=== PATIENT | male | born 1945 | race Caucasian/White ===

== ENCOUNTER 2017-01-23 07:28 | Observation (INO) | payer MEDICARE, BC ==
[2017-01-23] MEDS ORDERED: NS 0.9% 1000 ML* 1,000 ML IV ONE (07:41)
[2017-01-23] MEDS ORDERED: Aspirin Low Dose CHEW TAB* 81 MG PO ONE (07:41)
[2017-01-23 07:53] LABS: Hematocrit 43 % (42-52); Hemoglobin 14.9 g/dl (14.0-18.0); Mean Corpuscular HGB Conc 34 g/dl (31-36); Mean Corpuscular Hemoglobin 30 pg (27-31); Mean Corpuscular Volume 89 fL (80-94); Mean Platelet Volume 8 um3 (7.4-10.4); Red Blood Count 4.89 10^6/ul (4.0-5.4); Red Cell Distribution Width 14 % (10.5-15); White Blood Count 10.5 10^3/ul (3.5-10.8)
[2017-01-23] MEDS ORDERED: LORazepam INJ* 2 MG/ML 1 ML VIAL IV PUSH ONE (08:03)
[2017-01-23 08:09] LABS: Albumin 4.4 g/dL (3.2-5.2); BUN/Creatinine Ratio 15.7 (8-20); EGFR African American 71.5 (>60); EGFR Non-African American 55.6 (>60); Globulin 2.8 g/dL (2-4); Magnesium 1.9 mg/dL (1.9-2.7); Potassium 4.1 mmol/L (3.5-5.0); Total Bilirubin 0.9 mg/dL (0.2-1.0); Total Protein 7.2 g/dL (6.4-8.9)
--- NOTE | 2017-01-23 08:28 | RAD ---
INDICATION: Chest pain. COMPARISON: There are no prior studies available for comparison. TECHNIQUE: A portable view of the chest was obtained. FINDINGS: Cardiac and mediastinal contours appear to be within normal limits. There is a faint nodular density which projects over the right upper lobe which may be artifactual although a true pulmonary nodule cannot be excluded. The lungs are otherwise clear. No pleural effusion is seen. The results of this examination were discussed with the referring clinician. IMPRESSION: THERE IS A FAINT NODULAR DENSITY WHICH PROJECTS OVER THE RIGHT UPPER LOBE. RECOMMEND PA AND LATERAL CHEST X-RAYS FOR FURTHER EVALUATION.
[2017-01-23 08:32] LABS: TSH (Thyroid Stimulating Horm) 1.5 mcIU/mL (0.34-5.60)
[2017-01-23] MEDS ORDERED: Iodixanol* (CONTRAST) 320 MG/ML 100 ML SDV IV ONE (09:07)
[2017-01-23] MEDS ORDERED: NS 0.9% 1000 ML* 1,000 ML IV SCH (09:30)
--- NOTE | 2017-01-23 09:56 | RAD ---
INDICATION: Chest pain. Short of breath. Evaluate for pulmonary embolus. COMPARISON: January 23, 2017 TECHNIQUE: Axial source images were obtained from the thoracic inlet to the hemidiaphragms following administration of 77 mL Visipaque [address] angiographic technique was utilized. Coronal and sagittal reconstructed images were acquired. CHEST FINDINGS: Neck/thyroid: The visualized neck to include the thyroid appear normal. Chest wall: There are no acute abnormalities of the bony thorax or chest wall. There is no supraclavicular, infraclavicular, or axillary lymphadenopathy. Lungs : There is a spiculated 2.0 x 2.6 cm right upper lobe mass with a small amount of adjacent infiltrate or atelectasis. There are no other masses. There is also mild gravity dependent atelectasis in the lung bases. Evaluation of the lung bases is mildly limited due to breathing motion artifact. The pulmonary interstitium appears normal. There are no endobronchial lesions. Cardiomediastinal structures: There is no CT evidence of acute pulmonary embolic disease. The heart is normal in size. There is no pericardial effusion. There is no evidence of aortic aneurysm or dissection. There is no mediastinal or hilar adenopathy. The esophagus is dilated and there is no air-fluid level. There is circumferential thickening of the distal esophagus raising the possibility of esophageal carcinoma. Pleura : There are no pleural-based masses or effusions. Other: None. IMPRESSION: 1. 2.6 cm right upper lobe mass may or present a primary bronchogenic carcinoma or may be metastatic. 2. Circumferential thickening of the distal esophagus suggests the possibility of esophageal carcinoma. Upper endoscopy is recommended.
[2017-01-23 11:19] LABS: T4 9.38 mcg/mL (6.09-12.23)
[2017-01-23] MEDS: Heparin VIAL(*) 5000 UNITS/ML VIAL (FIVE THOUSAND) SUBCUT SCH ×2 (15:13→20:43)
--- NOTE | 2017-01-23 16:52 | RAD ---
Edited for charges. Indication: Chest pain. Myocardial perfusion scan was performed utilizing 1 day protocol. Rest myocardial perfusion was performed after intravenous injection of 10.6 mCi of technetium 99m tetrofosmin. Exercise stress study was performed and the maximum heart rate achieved was 101% of the maximum predicted value. 25.29 mCi of technetium 99m tetrofosmin was injected for the stress portion of the study. There is homogeneous distribution of the radiotracer throughout the left ventricle. There is no evidence of any fixed or reversible perfusion defects identified. The ejection fraction at stress is 79%. Evaluation of wall motion demonstrates no focal wall motion abnormality. IMPRESSION: No evidence of fixed or reversible perfusion defect. Normal ejection fraction. ASSESSMENT: Low risk Based on imaging criteria from ACC/AHA 2002 Guideline Update for the Management of Patients With Chronic Stable Angina Table 23. Noninvasive Risk Stratification. MTDD
[2017-01-23] MEDS ORDERED: Zolpidem TAB* 5 MG PO PRN (18:20)
--- NOTE | 2017-01-23 18:49 | PN ---
Hospitalist Progress Note CT scan reviewed with patient and , explained my concern about lung lesion and esophageal thickening and have called GI for evaluation for possible EGD. Will make NPO after midnight. Stress test negative.
[2017-01-23] MEDS ORDERED: Atorvastatin* 40 MG TAB PO SCH (21:00)
--- NOTE | 2017-01-23 21:11 | ED ---
Remi Morales Billy, scribed for Ildefonso Oquendo MD on 01/23/17 at 0741 . HPI Chest Pain - HPI Summary HPI Summary: Patient is a 71 year-old male coming to [facility] for evaluation of intermittent chest pain since 0100 early this morning. The pain is located in the upper sternal region of his chest bilaterally. Positive shortness of breath. He has had three episodes of nausea and vomiting since onset, and he has been lightheaded and diaphoretic. He also has intermittent bilateral numbness and tingling in his hands. He states that he felt dizzy yesterday afternoon, and he also states that he drove to and from [place]. The patient was given one dose of NTG by EMS. Denies history of AZ. - History of Current Complaint Chief Complaint: EDChestPainROMI Time Seen by Provider: 01/23/17 07:35 Hx Obtained From: Patient Onset/Duration: Started Hours Ago Time of Onset: 01:00 Timing: Intermittent Initial Severity: Moderate Current Severity: Moderate Pain Intensity: 3 Pain Scale Used: 0-10 Numeric Chest Pain Location: Upper Sternal Aggravating Factor(s): Nothing Alleviating Factor(s): Nothing Associated Signs and Symptoms: Positive: Chest Pain, Numbness, Tingling, Shortness of Breath, Lightheadedness, Diaphoresis, Nausea, Vomiting - Allergy/Home Medications Allergies/Adverse Reactions: Allergies Allergy/AdvReac Type Severity Reaction Status Date / Time No Known Allergies Allergy Verified 01/23/17 08:40 Home Medications: Home Medications Budesonide [Entocort EC] 9 mg PO DAILY 01/23/17 [History Confirmed 01/23/17] Dutasteride [Avodart] 0.5 mg PO DAILY 01/23/17 [History Confirmed 01/23/17] Eszopiclone (NF) [Lunesta (NF)] 3 mg PO BEDTIME 01/23/17 [History Confirmed ] Lipitor 40 MG* 40 mg PO BEDTIME 01/23/17 [History Confirmed 01/23/17] Lisinopril [Zestril 20 MG-] 20 mg PO DAILY 01/23/17 [History Confirmed 01/23/17] Tamsulosin CAP* [Flomax CAP*] 0.4 mg PO DAILY 01/23/17 [History Confirmed ] PMH/Surg Hx/FS Hx/Imm Hx Cardiovascular History: Reports: Hx Hypercholesterolemia, Hx Hypertension Sensory History: Denies: Hx Deafness Opthamlomology History: Denies: Hx Legally Blind Infectious Disease History: No Infectious Disease History: Denies: Traveled Outside the [place] in Last 30 Days - Family History Known Family History: Positive: Cardiac Disease - Father at age 56 during CABG operation. - Social History Alcohol Use: Occasionally Substance Use Type: Reports: None Smoking Status (MU): Former Smoker Review of Systems Positive: Chest Pain Positive: Shortness Of Breath Positive: Vomiting, Nausea Neurological: Other - lightheaded Positive: Paresthesia, Numbness All Other Systems Reviewed And Are Negative: Yes Physical Exam - Summary Physical Exam Summary: VITAL SIGNS: Reviewed. GENERAL: Patient is a well developed and nourished male who is lying comfortable in the stretcher. Patient is not in any acute respiratory distress. HEAD AND FACE: No signs of trauma. No ecchymosis, hematomas or skull depressions. No sinus tenderness. EYES: PERRLA, EOMI x 2, No injected conjunctiva, no nystagmus. EARS: Hearing grossly intact. Ear canals and tympanic membranes are within normal limits. MOUTH: Oropharynx within normal limits. NECK: Supple, trachea is midline, no adenopathy, no JVD, no carotid bruit, no c- spine tenderness, neck with full ROM. CHEST: Symmetric, no tenderness at palpation LUNGS: Clear to auscultation bilaterally. No wheezing or crackles. CVS: Regular rate and rhythm, S1 and S2 present, no murmurs or gallops appreciated. ABDOMEN: Soft, non-tender. No signs of distention. No rebound no guarding, and no masses palpated. Bowel sounds are normal. EXTREMITIES: FROM in all major joints, no edema, no cyanosis or clubbing. NEURO: Alert and oriented x 3. No acute neurological deficits. Speech is normal and follows commands. SKIN: Dry and warm Triage Information Reviewed: Yes Vital Signs On Initial Exam: Initial Vitals Temp Pulse Resp BP Pulse Ox 97.0 F 96 16 86/60 98 01/23/17 07:31 01/23/17 07:31 01/23/17 07:31 01/23/17 07:31 01/23/17 07:31 Vital Signs Reviewed: Yes Diagnostics - Vital Signs Vital Signs Temp Pulse Resp BP Pulse Ox 01/23/17 07:31 97.0 F 96 16 86/60 98 - Laboratory Lab Results: Lab Results 01/23/17 01/23/17 Range/Units 07:38 07:38 WBC 10.5 (3.5-10.8) 10^3/ul RBC 4.89 (4.0-5.4) 10^6/ul Hgb 14.9 (14.0-18.0) g/dl Hct 43 (42-52) % MCV 89 (80-94) fL MCH 30 (27-31) pg MCHC 34 (31-36) g/dl RDW 14 (10.5-15) % Plt Count 188 (150-450) 10^3/ul MPV 8 (7.4-10.4) um3 Neut % (Auto) 60.9 (38-83) % Lymph % (Auto) 29.8 (25-47) % [place] % (Auto) 7.8 (1-9) % Eos % (Auto) 0.8 (0-6) % Baso % (Auto) 0.7 (0-2) % Absolute Neuts (auto) 6.4 (1.5-7.7) 10^3/ul Absolute Lymphs (auto) 3.1 (1.0-4.8) 10^3/ul Absolute Monos (auto) 0.8 (0-0.8) 10^3/ul Absolute Eos (auto) 0.1 (0-0.6) 10^3/ul Absolute Basos (auto) 0.1 (0-0.2) 10^3/ul Absolute Nucleated RBC 0.02 10^3/ul Nucleated RBC % 0.2 Sodium 138 (133-145) mmol/L Potassium 4.1 (3.5-5.0) mmol/L Chloride 104 (101-111) mmol/L Carbon Dioxide 22 (22-32) mmol/L Anion Gap 12 H (2-11) mmol/L BUN 20 (6-24) mg/dL Creatinine 1.27 H (0.67-1.17) mg/dL Est GFR ( Amer) 71.5 (>60) Est GFR (Non-Af Amer) 55.6 (>60) BUN/Creatinine Ratio 15.7 (8-20) Glucose 122 H (70-100) mg/dL Calcium 10.0 (8.6-10.3) mg/dL Magnesium 1.9 (1.9-2.7) mg/dL Total Bilirubin 0.90 (0.2-1.0) mg/dL AST 18 (13-39) U/L ALT 17 (7-52) U/L Alkaline Phosphatase 65 (34-104) U/L Total Creatine Kinase 54 (10-223) U/L CK-MB (CK-2) Pending Myoglobin Pending Troponin I Pending Total Protein 7.2 (6.4-8.9) g/dL Albumin 4.4 (3.2-5.2) g/dL Globulin 2.8 (2-4) g/dL Albumin/Globulin Ratio 1.6 (1-3) TSH Pending Thyroxine (T4) Pending Result Diagrams: 01/23/17 07:38 01/23/17 07:38 Lab Statement: Any lab studies that have been ordered have been reviewed, and results considered in the medical decision making process. - Radiology CXR Radiology Interpretation Completed By: Radiologist - THERE IS A FAINT NODULAR DENSITY WHICH PROJECTS OVER THE RIGHT UPPER LOBE. RECOMMEND PA AND LATERAL CHEST X-RAYS FOR FURTHER EVALUATION. - CT CTA chest CT Interpretation Completed By: Radiologist - 1. 2.6 cm right upper lobe mass may or present a primary bronchogenic carcinoma or may be metastatic. 2. Circumferential thickening of the distal esophagus suggests the possibility of esophageal carcinoma. Upper endoscopy is recommended. - EKG 0732 EKG Interpretation: NSR 87 bpm, ST depressions in V3-V6, no STEMI Chest Pain Course/Dx - Course Assessment/Plan: Patient is a 71 year-old male coming to [facility] for evaluation of intermittent chest pain since 0100 early this morning. The pain is located in the upper sternal region of his chest bilaterally. Positive shortness of breath. He has had three episodes of nausea and vomiting since onset, and he has been lightheaded and diaphoretic. He also has intermittent bilateral numbness and tingling in his hands. He states that he felt dizzy yesterday afternoon, and he also states that he drove to and from [place]. The patient was given one dose of NTG by EMS. Denies history of AZ. Test results show bloodwork WNL except for D-dimer shows 455, creatinine of 1.27, and lactic acid of 2.5. Troponin #1 is 0.01, and troponin #2 is 0.01. CXR shows there is a faint nodular density which projects over the right upper lobe. Since there was a possible mass from the CXR, it was recommended to order CTA chest. The CTA chest shows: 1. 2.6 cm right upper lobe mass may or present a primary bronchogenic carcinoma or may be metastatic. 2. Circumferential thickening of the distal esophagus suggests the possibility of esophageal carcinoma. Since he had chest pain and these new findings from the CTA chest, possibly bronchogenic and esophageal carcinoma, I discussed my physical exam findings with Dr. Dunbar who accepted the patient for admission. He is hemodynamically stable, A&Ox3. - Chest Pain Differential Diagnosis/HQI/PQRI: Acute AZ, ACS, Angina, CHF, Chest Wall, GI Disease, Lower Respiratory Infection - Diagnoses Provider Diagnoses: chest pain r/o ACS, pulmonary mass r/o cancer, esophageal mass r/o esophageal carcinoma - Provider Notifications Discussed Care Of Patient With: Dr. Dunbar (hospitalist) at 0814: accepts admission. Dr. Ramos (radiologist) at 0825: CXR findings reviewed, recommends follow-up imaging. Discharge - Discharge Plan Condition: Stable Disposition: ADMITTED TO [facility] The documentation as recorded by the Remi swain Billy accurately reflects the service I personally performed and the decisions made by me, Ildefonso Oquendo MD.
--- NOTE | 2017-01-23 23:36 | CONS ---
Gastroenterology Consult DATE: 01/23/17 CONSULTING PHYSICIAN: Tim Dunbar REASON FOR CONSULTATION: Nausea and vomiting, illness beginning 1 a.m. the day of admission and then in ER ten hrs later CTA of the chest showing thickening of the esophagus and a possible RUL lung tumor. HISTORY: This 71-year-old man who generally does not have any gastrointestinal problems and is not on any special diet had been feeling nonspecifically unwell all day, , 01/22/17. He had a little bit of a headache. He drove to [place] with his and just felt sort of rotten, so let her drive home. They went to dinner and although he was anorectic, he had a little portion as tomorrow is their 50th anniversary. He went to bed, but did not really sleep as he was restless. He started vomiting around 1 a.m. and then had some chest pain. He thought the emesis contained bile. He vomited again at 4 and at 4:45 and then 7 a.m. His called an ambulance at that point. In the emergency room, there was no specific reason for the chest pain determined and he had a stress test today and there is a nuclear component. Preliminary exercise portion is okay. The ejection fraction was 79% on the nuclear portion and there was no wall motion abnormality. Tonight he was then able to eat some macaroni and that has settled fine. He does not feel any pain. PAST MEDICAL HISTORY: 1. Total hip replacement [address] Flowers - on the left. 2. Bilateral inguinal hernia repairs. 3. Microscopic Colitis - see ROS 4. Sinus surgery x 2 SOCIAL HISTORY: He is , retired from [employer] and spent November and December in [place] and is intensely tanned. He is a nonsmoker. He lives in [facility] in [place]. REVIEW OF SYSTEMS: No history of seizures, CVA, syncope, prior chest pain, and prior upper endoscopy. He has had 2 colonoscopies at [facility] that were negative. There is no recent falls. In January [address] Fink and had +CURT 1: 80 homogeneous. He denies taking Advil or Aleve. The next day on review he said he vomits every morning (but not at other times) attributing it to his sinuses. Addendum: later made reference to his "microbial colitis"; he had first said his colonoscopies were routine and with no findings - apparently he had chronic diarrhea and has been on budesonide since fall 2015 and it apparently helps PHYSICAL EXAM: General: He is an intensely tanned older man, in no distress. He is anicteric. Mucous membranes are normal. He has no adenopathy. Lungs: Clear. Heart: Sounds are regular. Abdomen: Symmetric with normal bowel sounds , soft, and nontender. Rectal: Deferred. Extremities: Show no edema. Neurologic: Nonfocal as he is awake, alert, and an external historian and ambulates freely. DIAGNOSTIC STUDIES/LAB DATA: Today, hemoglobin 14.9, hematocrit 43, MCV 89, and platelets 188. LFTs are normal. Creatinine 1.27 and BUN 20. AST/ALT 18/ 17. CT review - right upper lobe 2.6 cm lesion and a nondilated esophagus. IMPRESSION: This 71-year-old man has had acute GI symptoms that followed a day of malaise with no fever - it seems to have passed. In the ER the focus was on chest pain so the CT was of the chest. This and an ETT have not found any potential cause for the pain. He has some vague GERD like symptoms and sometimes that could lead to a Swanson's with a mass eventually. That would not usually lead to acute N_V or pain. Overall how all this fits together is is unclear - if EGD is negative a biliary source, will have to be considered. That is clearly separate from the issue raised on the CT scan in the right upper lobe and conceivably the distal esophagus. Upper endoscopy will be planned tomorrow. [id number]/[facility] #: [id number] [facility]
[2017-01-24] MEDS: Heparin VIAL(*) 5000 UNITS/ML VIAL (FIVE THOUSAND) SUBCUT SCH ×2 (05:58→12:19)
[2017-01-24 06:34] LABS: BUN/Creatinine Ratio 15.2 (8-20); Calcium 8.6 mg/dL (8.6-10.3); EGFR African American 95.3 (>60); EGFR Non-African American 74.1 (>60); Potassium 4.1 mmol/L (3.5-5.0)
[2017-01-24 06:41] LABS: Urine Bacteria Absent (Absent); Urine Bilirubin Negative (Negative); Urine Glucose Negative (Negative); Urine Nitrite Negative (Negative)
[2017-01-24 07:54] VITALS: BP 124/44
[2017-01-24] MEDS ORDERED: Finasteride TAB* 5 MG PO SCH (09:00)
[2017-01-24] MEDS ORDERED: Tamsulosin CAP* 0.4 MG PO SCH (09:00)
[2017-01-24] MEDS ORDERED: Budesonide CAP(NF) 3 MG PO SCH (09:00)
[2017-01-24] MEDS ORDERED: Aspirin EC Low Dose* 81 MG TAB.EC PO SCH (09:00)
[2017-01-24] MEDS ORDERED: Lisinopril TAB* 10 MG PO SCH (09:00)
[2017-01-24] MEDS ORDERED: Meperidine SYRINGE* 50 MG/ML ONE (09:30)
[2017-01-24] MEDS ORDERED: Midazolam* 1 MG/ML 10 ML VIAL (10 MG) ONE (09:30)
--- NOTE | 2017-01-24 15:17 | PN ---
Hospitalist Progress Note . HOSPITALIST DISCHARGE NOTE: See dc instructions and summary by me. Patient stable for dc dc instructions reviewed with the patient at the bedside. DC patient home today.
--- NOTE | 2017-01-25 01:48 | PRO ---
DATE: 01/24/17 - ROOM #[id number] REFERRING PHYSICIANS: Rodri Matson MD; Tim Dunbar MD* PROCEDURE: Upper gastrointestinal endoscopy. 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 He gave supplementary history of vomiting every morning for over 10 years, which he attributes to "sinuses." He downplays any burning or acid indigestion. He has a good appetite and no dysphagia. Informed consent was obtained. ENDOSCOPIST: Dr. Solares. MEDICATIONS: Midazolam 7, meperidine 50. FINDINGS: He is a tall tanned older man in no distress. EGD: Larynx - symmetric. Limited views with no obvious abnormality. Esophagus - easily entered and the mucosa is normal in the upper and mid esophagus. During certain phases of contraction, there was a ringlet impression to the mid esophagus and during the withdrawal phase of the procedure , two biopsies taken there, although most of the views showed a smooth, normal mid esophagus. Beginning at about 33 cm, there were erosions that increased rapidly and it became severe 4 quadrant from about 35 to 40. The edema was intense and appeared to be chronic as well as an acute injury on top. The EG junction at 40 was a little bit loose and there was a small hiatal hernia. There was no mass and no stricture per se. Stomach - generally normal mucosa and the cardia, fundus, body and antrum. A CLOtest was taken. Duodenum - the pylorus was normal. The bulb had a speckled white exudate appearing quite typical to chronic situation. The second through fourth portions of the duodenum were normal. During withdrawal, biopsies were taken from the severe distal esophagitis. IMPRESSION: 1. Small hiatal hernia. 2. Severe erosive gastroesophageal reflux disease, lower one-third of the esophagus. 3. Duodenitis - Helicobacter assessment pending and interview of his to determine possible NSAID use will be done. He denied NSAID use, but seems to be a minimizing historian. 4. Lung lesion - no evidence of a primary site in the visualized areas, which is good for him. [id number]/[facility] #: [id number] [facility]
--- NOTE | 2017-01-25 09:25 | DS ---
CC: Dr. Matson; Dr. Solares; Dr. Tejeda ([facility]) DISCHARGE SUMMARY: DATE OF ADMISSION: 01/23/17 DATE OF DISCHARGE: 01/24/17 STATUS DURING HOSPITALIZATION: Observation. PRIMARY CARE PROVIDER: Dr. Matson. PRINCIPAL DISCHARGE DIAGNOSES: 1. Erosive esophagitis after EGD by Dr. Braulio Solares. 2. Chest pain secondary to above, but initially thought secondary to perhaps coronary disease and status post nuclear stress test - rated low risk by ACC/ AHA criteria following a rule out by cardiac enzymes. 3. Left lung lesion seen on Chest CT, described below, with features consistent with possible malignancy. SECONDARY DIAGNOSES: 1. History of microscopic colitis - on steroids. 2. Bilateral inguinal hernia repairs. 3. Total hip replacement. 4. History of sinus surgeries. 5. 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 DISCHARGE MEDICATION REGIMEN: New: 1. Omeprazole 40 mg by mouth twice daily for one month and then reassess 2. Tamsulosin 0.4 mg by mouth daily. 3. Lisinopril 20 mg by mouth daily. 4. Lipitor 40 mg by mouth at bedtime. 5. Lunesta 3 mg by mouth bedtime. 6. Avodart 0.5 mg by mouth daily. 7. Budesonide 9 mg by mouth daily. HISTORY OF PRESENT ILLNESS AND HOSPITAL COURSE: Mr. Hidalgo is a pleasant 71- year-old gentleman who came to the emergency room with concern for chest pain after he woke up in the morning with vomiting and had subsequent chest pain. He thought the emesis contained bile. The patient had another episode of vomiting at 4:45 and then 7 a.m. on the morning of January 23 and his called an ambulance. The patient came to the emergency room and the initial concern was for coronary disease and the patient was placed on observation status with 2 sets of normal troponins warosa, and then he underwent a nuclear stress test, which was interpreted as low risk. The patient also had a CT scan of his chest and thorax and the results were concerning including a 2.6 cm right upper lobe mass that might represent a primary bronchogenic carcinoma or be metastatic and secondly, circumferential thickening of the distal esophagus suggesting the possibility of esophageal carcinoma and so, an upper endoscopy was recommended. They then pursued a GI consultation by Dr. Braulio Solares, who agreed to bring the patient for an EGD on the morning of 01/24/17. Please see his procedure note for more details, but in essence Dr. Solares found erosive esophagitis and not changes consistent with carcinoma or other malignant entity. The patient was placed on PPI therapy and is being discharged on such. The lung lesion then represents an issue to follow up and courtesy call will be placed to Dr. Matson regarding this. I spent some time speaking to the patient about the possibility of endobronchial biopsy versus, perhaps, an interventional radiology approach -- all depending on the anatomy and location of the lung mass. The patient is being discharged home in stable condition. He has not experienced any pain at this point. He will start the PPI therapy and will also follow up with his outpatient food safety director, Dr. Tejeda later this week. I gave a copy of the chest CT results to the patient's at the bedside, again they will work out the subsequent plans with Dr. Matson, who I will also reach out too. TIME SPENT: Total time taken to discharge Mr. Hidalgo was 45 minutes, greater than half the time spent going over the discharge instructions and the results from his CT test and the EGD and explaining the rationale for PPI therapy and so on. CONDITION ON DISCHARGE: Stable. [id number]/[facility] #: [id number] [facility]
== END 2017-01-24 13:45 | disposition home or self-care (01) ==
LOC: ED 07:28 → MEDTELE 08:16
PROVIDERS: ADMIT Hospitalist; ATTEND Internal Medicine
PROC: 0DB58ZX Excision of Esophagus, Via Natural or Artificial Opening Endoscopic, Diagnostic (ICD-10-PCS; principal; 2017-01-23)
DX: K22.10 Ulcer of esophagus without bleeding (principal); K21.0 Gastro-esophageal reflux disease with esophagitis; K44.9 Diaphragmatic hernia without obstruction or gangrene; K29.80 Duodenitis without bleeding; R07.9 Chest pain, unspecified; R11.2 Nausea with vomiting, unspecified; R91.1 Solitary pulmonary nodule; I10 Essential (primary) hypertension; E78.00 Pure hypercholesterolemia, unspecified; Z79.899 Other long term (current) drug therapy; Z87.891 Personal history of nicotine dependence; Z96.642 Presence of left artificial hip joint; R06.02 Shortness of breath
CPT/HCPCS: 36415; 71010; 71275; 78452; 80048; 80053; 81003; 81015; 82550; 82553; 83605; 83735; 83874; 83880; 84436; 84443; 84484; 85025; 85379; 85730; 87077; 88305; 88312; 93005; 93017; 96361; 96372; 96374; 99283; A9270-GY; A9502; G0378; J1644; J2060; J2250; Q9967

== ENCOUNTER 2017-03-05 12:38 | Day surgery (SDC) | payer MEDICARE, BC ==
[~2017-03-05 12:38] MED LIST: Buffered Lidocaine 0.9% SYRIN* 5 ML/SYR SYRINGE INTRADERM ONE; Famotidine IV* 10 MG/ML 2 ML (20 mg) IV ONE; Levalbuterol 0.63MG/3ML NEB INH ONE; Metoclopramide TAB* 10 MG PO ONE
[2017-03-05] MEDS ORDERED: Famotidine IV* 10 MG/ML 2 ML (20 mg) ONE (12:50)
[2017-03-05] MEDS ORDERED: Metoclopramide TAB* 10 MG ONE (12:50)
[2017-03-05] MEDS ORDERED: Levalbuterol 1.25MG/0.5ML NEB ONE (12:51)
[2017-03-05] MEDS ORDERED: Buffered Lidocaine 0.9% SYRIN* 5 ML/SYR SYRINGE ONE (12:51)
[2017-03-05] MEDS ORDERED: Dexamethasone IV* 4 MG/ML 1 ML (4 MG) ONE (13:22)
[2017-03-05] MEDS ORDERED: Cisatracurium* 2 MG/ML MDV 5 ML ONE (13:22)
[2017-03-05] MEDS ORDERED: Lidocaine 2% PF * 5 ML VIAL ONE (13:22)
[2017-03-05] MEDS ORDERED: fentaNYL* 50 MCG/ML 2 ML VIAL (100 MCG VIAL) ONE (13:22)
[2017-03-05] MEDS ORDERED: Propofol* 10 MG/ML 20 ML BTL IV PUSH ONE (13:22)
[2017-03-05] MEDS ORDERED: Ondansetron INJ* 2 MG/ML VIAL ONE (13:22)
[2017-03-05] MEDS ORDERED: KETAMINE HCL* 50 MG/ML 10 ML VIAL ONE (13:23)
[2017-03-05] MEDS ORDERED: Midazolam* 1 MG/ML 5 ML VIAL (5 MG) ONE (13:23)
[2017-03-05] MEDS ORDERED: fentaNYL* 50 MCG/ML 2 ML VIAL (100 MCG VIAL) IV PRN (15:43)
[2017-03-05] MEDS ORDERED: Ondansetron INJ* 2 MG/ML VIAL IV PRN (15:43)
[2017-03-05] MEDS ORDERED: oxyCODONE/Acetamin 5/325 MG* TAB PO PRN (15:43)
[2017-03-05 16:12] VITALS: BP 116/79
--- NOTE | 2017-03-06 12:33 | PRO ---
BRONCHOSCOPY REPORT: DATE OF PROCEDURE: 03/05/17 PROCEDURE PERFORMED: Bronchoscopy with endobronchial ultrasound-guided mediastinal node biopsy for lung cancer staging. ANESTHESIA: General anesthesia. ANESTHESIOLOGIST: Dr. Rodríguez. PRE-PROCEDURAL DIAGNOSIS: Recently diagnosed adenocarcinoma of the right lung, status post CT-guided biopsy at [facility]. PROCEDURE IN DETAIL: Informed consent was obtained from the patient prior to the procedure after all the risks and benefits were thoroughly explained. The patient was recently diagnosed with adenocarcinoma of right lung, status post CT -guided biopsy performed at [facility] in [place]. The patient was scheduled for EBUS bronchoscopy for lung cancer staging. Pre-procedural chest x -rays and CT scan were reviewed. Appropriate time-out was agreed on by attending staff prior to the procedure. Patient was positioned supine on the operating room table. General anesthesia was initiated. Patient was intubated with size 8.0 endotracheal tube. Flexible Olympus bronchoscope was inserted through ET tube, ET tube positioning was confirmed to be 2 cm above the level of vy. Given right-sided lung cancer, staging was initiated on the left side. L4 lymph node was accessed with 3 passes. Benign lymphatic tissue noted. No malignant cells were noted. Left hilar nodes were not enlarged and were not biopsied. Station 7 lymph node was accessed with 3 passes. Rapid on-site evaluation revealed adequate lymphatic tissue with no malignant cells. Station R4 lymph node was accessed with 4 passes. Malignant cells were noted. Rest of the specimen was placed in CytoLyt. Higher station lymph nodes, hilar nodes were not biopsied further. Procedure was terminated. Patient was extubated and seen in recovery area in optimal condition. [id number]/[facility] #: [id number] [facility]
== END 2017-03-05 16:31 | disposition home or self-care (01) ==
LOC: OR 12:38
PROVIDERS: ATTEND Internal Medicine
DX: C34.11 Malignant neoplasm of upper lobe, right bronchus or lung (principal); C77.1 Secondary and unspecified malignant neoplasm of intrathoracic lymph nodes; I10 Essential (primary) hypertension; M06.9 Rheumatoid arthritis, unspecified; Z87.891 Personal history of nicotine dependence
CPT/HCPCS: 88172; 88173; 88305; A9270-GY; J1100; J2250; J2405; J2704; J3010

== ENCOUNTER 2017-04-03 07:37 | Day surgery (SDC) | payer MEDICARE, BC ==
[~2017-04-03 07:37] MED LIST changes: +Buffered Lidocaine 0.9% SYRIN* 5 ML/SYR SYRINGE ONE; -Levalbuterol 0.63MG/3ML NEB INH ONE; -Metoclopramide TAB* 10 MG PO ONE
[2017-04-03] MEDS ORDERED: Famotidine IV* 10 MG/ML 2 ML (20 mg) ONE (07:57)
[2017-04-03] MEDS ORDERED: Lidocaine 1% INJ* 10 MG/ML 30 ML SDV ONE (07:59)
[2017-04-03] MEDS ORDERED: Bupivacaine 0.5% W/EPI SDV* 10 ML VIAL INJ ONE (07:59)
[2017-04-03] MEDS ORDERED: KETAMINE HCL* 50 MG/ML 10 ML VIAL ONE (08:02)
[2017-04-03] MEDS ORDERED: fentaNYL* 50 MCG/ML 2 ML VIAL (100 MCG VIAL) ONE (08:02)
[2017-04-03] MEDS ORDERED: Midazolam* 1 MG/ML 5 ML VIAL (5 MG) ONE (08:02)
[2017-04-03] MEDS ORDERED: Propofol* 10 MG/ML 20 ML BTL IV PUSH ONE (09:26)
[2017-04-03] MEDS ORDERED: Phenylephrine IV* 40 MCG/ML 10 ML SYRINGE ONE (09:26)
[2017-04-03] MEDS ORDERED: Lidocaine 2% PF * 5 ML VIAL ONE (09:26)
[2017-04-03] MEDS ORDERED: fentaNYL* 50 MCG/ML 2 ML VIAL (100 MCG VIAL) IV PRN (09:42)
[2017-04-03] MEDS ORDERED: oxyCODONE/Acetamin 5/325 MG* TAB PO PRN (09:42)
[2017-04-03] MEDS ORDERED: Morphine INJ* 2 MG/ML 1 ML SYRINGE IV PRN (09:42)
[2017-04-03] MEDS ORDERED: Ondansetron INJ* 2 MG/ML VIAL IV PRN (09:42)
[2017-04-03] MEDS ORDERED: PROCHLORPERAZINE INJ 5 MG/ML 2 ML VIAL IV PRN (09:42)
[2017-04-03] MEDS ORDERED: Acetaminophen TAB* 325 MG PO PRN (09:43)
--- NOTE | 2017-04-03 09:53 | SURGPN ---
Brief Operative Note - Surgery Procedures: Procedures EXCISION OF ESOPHAGUS, ENDO, DIAGN (01/23/17) 04/03/17 Op Note (dictated) Pre-op dx: lung cancer Post-op dx: same Procedure: power port placement Surgeon: khloe Asst: none Anesth: general EBL: 5 cc Abx: not indicated SCDs on during surgery complications: none Pt. Tolerated procedure well and was transferred to in a stable condition. CLFoster
--- NOTE | 2017-04-03 10:28 | RAD ---
INDICATION: Line placement evaluate for pneumothorax. COMPARISON: Comparison is made with a prior chest x-ray study from January 23, 2017. TECHNIQUE: A portable view of the chest was obtained. FINDINGS: The patient is status post placement of a PowerPort central venous catheter on the right side. The catheter tip projects over the superior vena cava. The heart is within normal limits in size. The lungs are clear. No pneumothorax is seen. IMPRESSION: STATUS POST CENTRAL VENOUS CATHETER PLACEMENT, NO EVIDENCE FOR ACUTE FINDING.
--- NOTE | 2017-04-03 10:29 | RAD ---
INDICATION: Power port placement COMPARISONS: None relevant TECHNIQUE: Fluoroscopy was provided for a vascular access procedure. Total fluoroscopy time is: 45.5 seconds FINDINGS: Spot images of the straight a right-sided chest port with the tip overlying the cavoatrial junction IMPRESSION: FLUOROSCOPY WAS PROVIDED FOR A VASCULAR ACCESS PROCEDURE CPT II Codes: 6045F
[2017-04-03 10:57] VITALS: BP 133/62
--- NOTE | 2017-04-04 05:25 | OP ---
CC: Rodri Matson MD; Dr. Floyd Glynn * DATE OF PROCEDURE: 04/03/17 - [facility] DATE OF : 41 SURGEON: Janina Hawley MD. IGNITION MECHANIC: There was no library serials assistant for this case. ANESTHESIOLOGIST: Pedrito Goode MD ANESTHESIA: MAC PRE-OP DIAGNOSIS: Lung cancer. POST-OP DIAGNOSIS: Lung cancer. OPERATIVE PROCEDURE: PowerPort placement. INDICATION: Mr. Hidalgo is a 71-year-old gentleman recently diagnosed with lung cancer who needs chemotherapy. He was therefore prepared for PowerPort placement. DESCRIPTION OF PROCEDURE: He was brought to the operating room, placed on the OR table in supine position and given IV sedation. The chest was prepped and draped in the usual sterile fashion. After infiltrating with local anesthetic using a Seldinger technique, an attempt was made to access the subclavian vein and this was successful except I was unable to advance the wire past the needle , so I then infiltrated locally in the region of the jugular vein and accessed the jugular vein using a Seldinger technique. A wire was placed in the jugular vein on the right side and the needle was removed. A port pocket was created by infiltrating the skin at the anterior chest wall with local anesthetic and making an incision. A flap was then developed inferiorly to create the pocket. This was done with electrocautery. Once the pocket was of a size to accommodate the port, the catheter was tunneled from the port pocket site to the wire exit site and then a dilator and introducer were passed over the wire into the internal jugular vein under fluoroscopic visualization. The dilator and wire were removed. The catheter was advanced through the introducer and the introducer was then peeled away. This was done under fluoroscopic visualization. The catheter was trimmed to an appropriate length and attached to the port, which was inserted into the pocket and secured to the chest wall with 2-0 Surgipro stitches. The catheter function was confirmed by flushing with saline and then the port pocket site was closed with 3-0 Polysorb and subcutaneous layer of the skin was closed with 5-0 Surgipro in a subcuticular fashion. Again, the port position was checked and function was checked and it was flushed with heparinized saline. Steri-Strips and a dry sterile dressing were applied. All sponge and instrument counts were correct. The patient tolerated the procedure well and was transferred to Recovery in a stable condition. [id number]/[facility] #: [id number] MTDD
== END 2017-04-03 10:57 | disposition home or self-care (01) ==
LOC: OR 07:37
PROVIDERS: ATTEND Surgery
DX: C34.90 Malignant neoplasm of unspecified part of unspecified bronchus or lung (principal); Z87.891 Personal history of nicotine dependence; E78.5 Hyperlipidemia, unspecified; M06.9 Rheumatoid arthritis, unspecified
CPT/HCPCS: 71010; C1788; J1642; J2001; J2250; J2704; J3010

== ENCOUNTER 2017-06-16 17:24 | Observation (INO) | payer MEDICARE, BC ==
[2017-06-16] MEDS ORDERED: Prochlorperazine TAB* 10 MG PO PRN (17:34)
[2017-06-16] MEDS ORDERED: Ondansetron TAB* 4 MG PO PRN (17:34)
[2017-06-16] MEDS ORDERED: Enoxaparin(*) 30 MG/0.3 ML SYR SUBCUT SCH (18:00)
[2017-06-16] MEDS ORDERED: Atorvastatin* 40 MG TAB PO SCH (18:00)
[2017-06-16] MEDS: NS 0.9% 1000 ML* 1,000 ML IV SCH (18:23)
[2017-06-16] MEDS ORDERED: Zolpidem TAB* 10 MG PO SCH (21:00)
[2017-06-17] MEDS: NS 0.9% 1000 ML* 1,000 ML IV SCH (04:21)
[2017-06-17 05:31] LABS: Hematocrit 21 % (42-52); Hemoglobin 7.5 g/dl (14.0-18.0); Mean Corpuscular HGB Conc 36 g/dl (31-36); Mean Corpuscular Hemoglobin 31 pg (27-31); Mean Corpuscular Volume 87 fL (80-94); Mean Platelet Volume 7 um3 (7.4-10.4); Red Cell Distribution Width 19 % (10.5-15)
[2017-06-17 05:32] LABS: Comments Flag Yes; White Blood Count 2.6 10^3/ul (3.5-10.8)
[2017-06-17 05:42] LABS: Albumin 3.4 g/dL (3.2-5.2); BUN/Creatinine Ratio 7.6 (8-20); Calcium 8.6 mg/dL (8.6-10.3); EGFR African American 61.4 (>60); EGFR Non-African American 47.7 (>60); Globulin 2.5 g/dL (2-4); Magnesium 2.4 mg/dL (1.9-2.7); Potassium 3.8 mmol/L (3.5-5.0); Total Bilirubin 0.5 mg/dL (0.2-1.0); Total Protein 5.9 g/dL (6.4-8.9)
[2017-06-17] MEDS ORDERED: Tamsulosin CAP* 0.4 MG PO SCH (09:00)
[2017-06-17] MEDS ORDERED: Omeprazole CAP* 20 MG PO SCH (09:00)
[2017-06-17] MEDS ORDERED: Budesonide CAP(NF) 3 MG PO SCH (09:00)
[2017-06-17] MEDS ORDERED: Acetaminophen TAB* 325 MG PO PRN (10:17)
[2017-06-17 16:19] VITALS: BP 153/71
== END 2017-06-17 17:00 | disposition home or self-care (01) ==
LOC: MED 17:53
PROVIDERS: ADMIT Internal Medicine Hematology & Oncology; ATTEND Internal Medicine Hematology & Oncology
DX: D70.9 Neutropenia, unspecified (principal); E86.0 Dehydration; C34.90 Malignant neoplasm of unspecified part of unspecified bronchus or lung; J44.9 Chronic obstructive pulmonary disease, unspecified; E83.42 Hypomagnesemia; K22.10 Ulcer of esophagus without bleeding; I10 Essential (primary) hypertension; M06.9 Rheumatoid arthritis, unspecified; N40.0 Benign prostatic hyperplasia without lower urinary tract symptoms; Z87.891 Personal history of nicotine dependence; Z79.899 Other long term (current) drug therapy; C34.11 Malignant neoplasm of upper lobe, right bronchus or lung; R06.00 Dyspnea, unspecified
CPT/HCPCS: 36415; 36430; 36591; 80053; 83605; 83735; 84484; 85025; 86850; 86900; 86901; 86922; 87040; 93005; 96360; 96361; 99214; 99219; A9270-GY; G0378; G0463; J1642; J3475; P9040

== ENCOUNTER 2018-07-11 09:01 | Inpatient (IN) | payer MEDICARE, BC ==
[2018-07-11] MEDS ORDERED: Morphine VIAL* 4 MG/ML VIAL (1 ml vial) IV ONE ×3 (09:10→09:57)
--- NOTE | 2018-07-11 09:15 | ED ---
Abdominal Pain/Male - HPI Summary HPI Summary: The pt is a 73 y/o M presenting to the ED BIBA with a chief complaint of diffuse abd pain onset 2.5 hours ago. There has been no diarrhea, nor any nausea or vomiting. There is no past abdominal surgical history. The pt reported this abd pain is normal but today was much more severe. Per , he has a hx of chest pains. Per EMS, he has no hx of heart issues. The pt has had half of his R lung removed due to cancer. - History of Current Complaint Chief Complaint: EDAbdPain Stated Complaint: ABD PAIN Time Seen by Provider: 07/11/18 09:08 Hx Obtained From: Patient Onset/Duration: Gradual Onset, Lasting Hours, Still Present Timing: Constant Severity Initially: Moderate Severity Currently: Mild Location: Diffuse Radiates: No Character: Cramping Aggravating Factor(s): Nothing Alleviating Factor(s): Nothing Associated Signs And Symptoms: Positive: Other - hyperventilating - Allergies/Home Medications Allergies/Adverse Reactions: Allergies Allergy/AdvReac Type Severity Reaction Status Date / Time No Known Allergies Allergy Verified 06/09/17 10:14 Home Medications: Home Medications ALPRAZolam [Xanax] 0.25 mg PO DAILY PRN 07/11/18 [History Confirmed 07/11/18] Amlodipine Besylate [Norvasc 10 mg tab] 10 mg PO DAILY 07/11/18 [History Confirmed 07/11/18] Dutasteride [Avodart] 0.5 mg PO DAILY 07/11/18 [History Confirmed 07/11/18] Fludrocortisone Acetate TAB* [Florinef TAB*] 0.1 mg PO DAILY 07/11/18 [History Confirmed 07/11/18] Magnesium CITRATE* [Citrate of Magnesia*] 15 ml PO BID 07/11/18 [History Confirmed 07/11/18] Melatonin [Meladox] 3 mg PO DAILY 07/11/18 [History Confirmed 07/11/18] Potassium Chloride 20 meq PO DAILY 07/11/18 [History Confirmed 07/11/18] busPIRone TAB* [Buspar TAB*] 5 mg PO TID 07/11/18 [History Confirmed 07/11/18] PMH/Surg Hx/FS Hx/Imm Hx Previously Healthy: No Endocrine/Hematology History: Denies: Hx Diabetes Cardiovascular History: Reports: Hx Angina, Hx Hypercholesterolemia, Hx Hypertension - on meds Denies: Hx Coronary Artery Disease, Hx Myocardial Infarction, Hx Pacemaker/ ICD, Hx Valvular Heart Disease, Other Cardiovascular Problems/Disorders Respiratory History: Reports: Hx Asthma, Other Respiratory Problems/Disorders - LUNG CA, SURGERY TO REMOVE TUMOR JUNE 2017 Denies: Hx Chronic Obstructive Pulmonary Disease (COPD) GI History: Reports: Hx Gastroesophageal Reflux Disease Denies: Other GI Disorders History: Reports: Other Problems/Disorders - Enlarged Prostate Denies: Hx Renal Disease Musculoskeletal History: Reports: Hx Arthritis - rheumatoid Denies: Other Musculoskeletal History Sensory History: Reports: Hx Contacts or Glasses Denies: Hx Legally Blind, Hx Deafness, Hx Hearing Aid Opthamlomology History: Reports: Hx Contacts or Glasses Denies: Hx Legally Blind Neurological History: Denies: Other Neuro Impairments/Disorders Psychiatric History: Reports: Hx Anxiety - no meds Denies: Hx Panic Disorder - Cancer History Cancer Type, Location and Year: LUNG CARCINOMA Hx Chemotherapy: Yes - Surgical History Surgery Procedure, Year, and Place: LEFT HIP replacement, 2009, [facility]. 2 sinus. 2 hernia repairs Hx Anesthesia Reactions: No Infectious Disease History: Denies: Traveled Outside the [place] in Last 30 Days - Family History Known Family History: Positive: Cardiac Disease - Father at age 56 during CABG operation. - Social History Alcohol Use: None Alcohol Amount: "social" Substance Use Type: Reports: None Smoking Status (MU): Former Smoker Type: Cigarettes Amount Used/How Often: pack a day for 30 yrs Have You Smoked in the Last Year: No Review of Systems Negative: Fever Positive: Shortness Of Breath Positive: Abdominal Pain, Diarrhea - intermittent. Negative: Vomiting, Nausea Positive: Anxious All Other Systems Reviewed And Are Negative: Yes Physical Exam - Summary Physical Exam Summary: Appearance: Anxious, hyperventilating, appears colicky Skin: Warm, dry, no obvious rash Eyes: sclera anicteric, no conjunctival pallor ENT: mucous membranes moist, pharynx appears normal Neck: Supple, nontender Respiratory: Clear to auscultation, no signs of respiratory distress Cardiovascular: Normal S1, S2. No murmurs. Normal distal pulses in tibial and radial bilaterally. Abdomen: Mild generalized tenderness without peritoneal signs, normal active bowel sounds present, no surgical scars, no masses; pulsatile or otherwise Musculoskeletal: Normal, Strength/ROM Intact Neurological: A&Ox3, awake and alert, mentation is normal, speech is fluent and appropriate Psychiatric: affect is normal, anxious Triage Information Reviewed: Yes Vital Signs Reviewed: Yes Diagnostics - Laboratory Result Diagrams: 07/11/18 09:20 07/11/18 09:21 Lab Statement: Any lab studies that have been ordered have been reviewed, and results considered in the medical decision making process. - CT ABD/PELV CT CT Interpretation Completed By: Radiologist Summary of CT Findings: 1. CT findings are consistent with either partial small bowel obstruction or an infectious. or inflammatory ileitis. There is a small amount of perihepatic and perisplenic fluid as. well as infiltration of the mesenteric fat with trace ascites. 2. The homogenously hypoattenuating liver relative the spleen could be seen in the setting. of hepatic steatosis or other chronic infiltrative disease. 3. There is pericholecystic fluid which is suspected to be adjacent fluid due to the after. mentioned findings. If the patient is exhibiting signs of acute cholecystitis superior. characterization of the gallbladder can be made with right upper quadrant ultrasound. 4. Diverticulosis without focal inflammatory change characteristic of diverticulitis. 5. Additional chronic, degenerative and iatrogenic findings described in the body the. report. ED physician has reviewed this report. - EKG 1011 Cardiac Rate: NL - 77bpm EKG Rhythm: Sinus Rhythm ST Segment: Normal Ectopy: None EKG Comparison: No Significant Change Abdominal Pain Fem Course/Dx - Course Course Of Treatment: The pt is a 73 y/o M presenting with a chief complaint of abd pain onset 2.5 hours ago, more severe than normal. Pt is anxious and hyperventilating. Imaging will be done for further determination. - Diagnoses Provider Diagnoses: Partial small bowel obstruction Discharge - Sign-Out/Discharge Documenting (check all that apply): Patient Departure - Discharge Plan Condition: Stable Disposition: ADMITTED TO [facility] - Billing Disposition and Condition Condition: STABLE Disposition: Admitted to [facility] - Attestation Statements Document Initiated by Scribe: Yes Documenting Scribe: Penny Jackson Provider For Whom Scribe is Documenting (Include Credential): David Ashby MD. Scribe Attestation: Penny Morales, scribed for David Ashby MD. on 07/11/18 at 1323. Scribe Documentation Reviewed: Yes Provider Attestation: The documentation as recorded by the scribe, Penny Jackson accurately reflects the service I personally performed and the decisions made by me, David Ashby MD. Consult Consult: [address] Valero about the pts history and present condition who will be coming down to see the patient for further evaluation. 1230 - Spoke with Dr. Scott who will see the patient in consultation for medical evaluation preop.
[2018-07-11 09:40] LABS: ABS Basophils 0.1 10^3/ul (0-0.2); ABS Eosinophils 0.1 10^3/ul (0-0.6); ABS Monocytes 0.4 10^3/ul (0-0.8); ABS Neutrophils 3.5 10^3/ul (1.5-7.7); ABS Nucleated RBC 0 10^3/ul; Eosinophil % 1.5 % (0-6); Hematocrit 35 % (42-52); Hemoglobin 12.4 g/dl (14.0-18.0); Lymphocyte % 19.2 % (25-47); Mean Corpuscular HGB Conc 36 g/dl (31-36); Mean Corpuscular Hemoglobin 31 pg (27-31); Mean Corpuscular Volume 86 fL (80-94); Mean Platelet Volume 7.1 fL (7.4-10.4); Nucleated Red Blood Cells % 0; Platelet Count 210 10^3/ul (150-450); Red Blood Count 4.02 10^6/ul (4.00-5.40); Red Cell Distribution Width 14 % (10.5-15)
[2018-07-11 09:56] LABS: Albumin 4.4 g/dL (3.2-5.2); Albumin/Globulin Ratio 1.4 (1-3); BUN/Creatinine Ratio 11.8 (8-20); Calcium 10.1 mg/dL (8.6-10.3); Globulin 3.2 g/dL (2-4); Potassium 3.4 mmol/L (3.5-5.0); Total Bilirubin 0.7 mg/dL (0.2-1.0); Total Protein 7.6 g/dL (6.4-8.9)
[2018-07-11] MEDS ORDERED: Iodixanol* (CONTRAST) 320 MG/ML 100 ML SDV IV ONE (10:13)
--- NOTE | 2018-07-11 12:06 | RAD ---
CLINICAL HISTORY: Abdominal pain. Relevant surgical history includes left total hip arthroplasty and "2 hernia repairs". Requisition also notes a history of lung carcinoma. COMPARISON: PET/CT dated March 11, 2018 TECHNIQUE: Contrast enhanced CT examination of the abdomen and pelvis from the lung bases through the initial tuberosities. The patient received 91 mL of Visipaque 320 intravenously prior to imaging.The patient received oral contrast as well prior to imaging. FINDINGS: Unless otherwise specified comparisons below reference to March 11, 2018 PET/CT. VISUALIZED LUNG BASES: The visualized lung bases are grossly clear. There is no pleural effusion. ABDOMEN AND PELVIS: The liver is homogenously hypodense. There is no focal liver lesions. There is trace perihepatic and perisplenic fluid noted. The pancreas and adrenal glands are grossly normal in appearance. There are no hyperattenuating stones visible in the gallbladder lumen. The small amount of perihepatic fluid and ascites in the mesentery abuts the medial border of the gallbladder is well. There is a fluid density cyst in the left kidney. Otherwise the kidneys are normal in appearance without focal mass, calcification or signs of hydronephrosis. The oral contrast has progressed as far as the proximal small bowel. At the upper midline abdomen there is a dilated segment of fluid and gas-filled small bowel measuring just under 3 cm in diameter. There appears to be a transition point at the right of midline upper abdomen. There is infiltration of the mesenteric fat in this area. Or distally the small bowel is decompressed. The patient's normal 5 mm wide appendix is identified in the right lower quadrant (image 59). The gas and stool-filled colon is normal in dimension. There are numerable rectosigmoid diverticula but none exhibit focal inflammatory change. There is no gross retroperitoneal or mesenteric lymphadenopathy. There is trace ascites adjacent to the dilated loops of small bowel. Trace ascites extends to the upper pelvis. Meniscectomy clips are incidentally noted bilaterally. The coarsely calcified abdominal aorta and iliac arteries are normal in course and diameter. There is no significant calcification or appearance of narrowing involving the celiac trunk or superior mesenteric artery. Degenerative changes include multilevel loss of intervertebral disc height involving the lower thoracic and lumbar spine. The left hip prosthesis is anatomically aligned and intact. IMPRESSION: 1. CT findings are consistent with either partial small bowel obstruction or an infectious or inflammatory ileitis. There is a small amount of perihepatic and perisplenic fluid as well as infiltration of the mesenteric fat with trace ascites. 2. The homogenously hypoattenuating liver relative the spleen could be seen in the setting of hepatic steatosis or other chronic infiltrative disease. 3. There is pericholecystic fluid which is suspected to be adjacent fluid due to the after mentioned findings. If the patient is exhibiting signs of acute cholecystitis superior characterization of the gallbladder can be made with right upper quadrant ultrasound. 4. Diverticulosis without focal inflammatory change characteristic of diverticulitis 5. Additional chronic, degenerative and iatrogenic findings described in the body the report.
[2018-07-11] MEDS ORDERED: NS 0.9% 1000 ML* 2,000 ML IV ONE (12:54)
[2018-07-11] MEDS ORDERED: Morphine VIAL* 4 MG/ML VIAL (1 ml vial) IV PRN (13:17)
[2018-07-11] MEDS ORDERED: Bupivacaine 0.5% W/EPI SDV* 30 ML VIAL ONE (13:48)
[2018-07-11] MEDS ORDERED: Piperacillin/Tazobactam VIAL*) 3.375 GM VIAL (COMPD & OVERRIDE) IVPB ONE (14:09)
[2018-07-11] MEDS ORDERED: fentaNYL* 50 MCG/ML 2 ML VIAL (100 MCG VIAL) ONE (14:19)
[2018-07-11] MEDS ORDERED: Lidocaine 2% PF * 5 ML VIAL ONE (14:19)
[2018-07-11] MEDS ORDERED: Propofol* 10 MG/ML 20 ML BTL IV PUSH ONE (14:19)
[2018-07-11] MEDS ORDERED: Cisatracurium* 2 MG/ML MDV 5 ML ONE (14:20)
[2018-07-11] MEDS ORDERED: Fluorescein 10% INJ* 100 MG/ML AMP ONE (15:01)
[2018-07-11] MEDS ORDERED: Neostigmine Methylsulfate* 1 MG/ML 10 ML VIAL (1 mg/ml) ONE (15:38)
[2018-07-11] MEDS ORDERED: Rocuronium* 10 MG/ML VIAL ONE (15:39)
--- NOTE | 2018-07-11 16:12 | BRIEFOPN ---
Brief Operative Note - Surgery Procedures: Procedures OPERATIVE REPORT PRE-OP: Abdominal pain POST-OP:Same, Internal hernia secondary to adhesive band causing obstruction, small bowel viable PROCEDURE:laparoscopic lysis of adhesions SURGEON: MD Anjum ANESTHESIA:Local General, Dr. Apple ASST:none IVF:1.6 liter of crystalloid EBL:min SPECIMEN:none DRAIN: none WOUND CLASS:one COMPLICATIONS: none TO PACU
[2018-07-11] MEDS ORDERED: Ondansetron INJ* 2 MG/ML VIAL IV PRN (16:13)
[2018-07-11] MEDS ORDERED: Acetaminophen TAB* 325 MG PO PRN (16:13)
[2018-07-11] MEDS ORDERED: fentaNYL* 50 MCG/ML 2 ML VIAL (100 MCG VIAL) IV PRN (16:16)
[2018-07-11] MEDS ORDERED: Naloxone* 0.4 MG/ML 1 ML VIAL IV PRN (16:16)
--- NOTE | 2018-07-11 18:12 | HP ---
CC: Dr. Horner, at [facility] in [place].* HISTORY AND PHYSICAL ADMISSION: DATE OF ADMISSION: 07/11/18 REASON FOR ADMISSION: Severe abdominal pain. HISTORY OF PRESENT ILLNESS: Mr. Hidalgo is a very pleasant 73-year-old gentleman who awoke early this morning with severe, sudden onset of generalized abdominal discomfort. This made him extremely uncomfortable. His stated he was writhing in pain, pulling his knees up to his chest. This was not associated with nausea, vomiting, or diarrhea. He had a normal bowel movement yesterday. He ate dinner yesterday, was doing fine without problems. He had no fevers, shakes or chills, or back discomfort. He does not have chronic abdominal discomfort. He has had a colonoscopy remotely, which was unremarkable. He has had no change in his bowel habits recently. He has not had prior abdominal surgeries other than having bilateral inguinal hernia repairs done. He has a history of right lung cancer and underwent a thoracoscopic partially resection of his right lung with subsequent chemotherapy and radiation, but this treatment was completed almost a year ago. He is under the care here of Dr. Sofia Saini from [facility]. While in the emergency room, he was noted to have stable vital signs, afebrile with a heart rate between 60 and 90. Blood pressure was stable. White blood cell count was normal with a hemoglobin of 12.4. There is slight decrease in the carbon dioxide of 21 on his chemistries. Lactic acid was not performed. Lipase was 23. His alkaline phosphatase was 124. He underwent a CT scan of the abdomen and pelvis. I did review these images. I also reviewed these with Dr. De La Rosa from Radiology. This shows central area of small bowel distention with some free fluid up around the liver and perisplenic area. There was infiltration of the mesenteric fat in this area. It is concern for possible partial small bowel obstruction versus infectious or inflammatory ileitis. The colon appeared to be unremarkable. Gallbladder was unremarkable. There was some diverticulosis noted. A surgical consultation was obtained. PAST MEDICAL HISTORY: 1. Right lung cancer. 2. Hypertension. 3. Benign prostatic hypertrophy. PAST SURGICAL HISTORY: 1. Right thoracoscopy with lung resection. 2. Bilateral inguinal hernias. 3. Nasal surgery. MEDICATIONS: Medicines include: 1. Florinef. 2. Amlodipine. 3. Avodart. 4. BuSpar. 5. Magnesium. 6. Melatonin. 7. Atorvastatin. 8. Alprazolam. 9. Prilosec. 10. Lunesta. 11. Flomax. ALLERGIES: He has no known drug allergies. SOCIAL HISTORY: He quit smoking almost 30 years ago. 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 Does not use alcohol. PHYSICAL EXAMINATION GENERAL: He is a slender male, appears to be somewhat restless. He had received 30 mg of IV morphine prior to my seeing him and he is somewhat confused. His is present at the bedside. VITAL SIGNS: He is afebrile, pulse rate is 92, blood pressure 125/63. HEENT: Sclerae anicteric. His oral mucosa is slightly dry. LUNGS: Clear to auscultation with normal respiratory effort. He has well- healed right thoracoscopy incisions. HEART: Regular rate and rhythm without murmurs, rubs, gallops. ABDOMEN: Soft and slightly distended. He had diminished bowel sounds throughout. There were no hernias noted. He has generalized tenderness; however , there is no generalized peritoneal irritation. He has some voluntary guarding. There are well- healed incisions in the groins. EXTREMITIES: Show no cyanosis or edema. LABORATORY DATA/DIAGNOSTIC STUDIES: Laboratory workup is essentially unremarkable. He is hemodynamically stable. Lactic acid is pending. CT scan has findings as above. I am concerned for the possibility of an internal hernia, which is causing ischemia or primary ischemic event causing this significant sudden onset of discomfort and pain out of proportion to physical examination. He certainly is at low risk for embolic phenomenon. It appears that his superior mesenteric artery and celiac arteries are patent, but there is calcification in these areas. IMPRESSION: Sudden onset of severe colicky abdominal discomfort early this morning. It has been present for several hours. He has required a significant amount of morphine in the emergency room. After discussing all of the findings and the workup with the patient and his , at this point, I recommended we proceed to the operating for diagnostic laparoscopy with possible laparotomy. I feel that with significant amount of discomfort and worrisome findings on CT scan, there is no further testing or observation that I would elect to pursue in letting him in observation and if a simple laparoscopy is unremarkable, then I think that the benefit certainly outweigh the risks of general anesthetic with several small incisions. I discussed the procedure with them and the risks of, but not limited to bleeding, infection, intraabdominal abscess formation, possibility of an open procedure, possibility of bowel resection, possible ostomy, abscess formation, the risks of general anesthesia, deep vein thrombosis were all explained. They understand and will give their consent to proceed. PLAN: Diagnostic laparoscopy with possible exploratory laparotomy, possible bowel resection. He will be kept n.p.o. and receive preoperative IV antibiotics. He has been receiving IV fluids here in the emergency room. Hospitalist medicine consultation also has been obtained. [id number]/[facility] #: [id number] [facility]
[2018-07-11] MEDS: NS 0.9% 1000 ML* 1,000 ML IV SCH ×2 (19:12→21:31)
--- NOTE | 2018-07-11 20:38 | HP ---
CC: Dr. Valero; Dr. Horner.* HISTORY AND PHYSICAL: DATE OF ADMISSION: 07/11/18 PROVIDER: Cortney Matias NP. ATTENDING PHYSICIAN WHILE IN THE HOSPITAL: Haider Scott MD * (dictated by Cortney Matias NP) CHIEF COMPLAINT: Abdominal pain. HISTORY OF PRESENT ILLNESS: Mr. Hidalgo is a 73-year-old male with a past medical history significant for microscopic colitis, hyperlipidemia, hypertension, BPH, history of lung cancer with resection in June 2017. Mr. Hidalgo presented to the emergency room today with severe abdominal pain. His reports that approximately 7:30 this morning, the patient woke with severe mid abdominal pain. She reports that he was unable to control his pain. He was rocking in the bed and unable to get comfortable. The patient was nauseated, reported that he felt like he needed to vomit, but did not vomit. The pain continued for approximately 2 hours with no decrease in the level of pain, so she called the ambulance who brought him to the emergency room. She reports the patient has not had any fever, loss of appetite, chest pain, edema, has not been in any cough, congestion or hemoptysis. There has been no shortness of breath. No nausea, vomiting, or diarrhea. No gross hematuria or dysuria. No focal weakness or sensory loss. No visual complaints. No dysphagia. No arthralgias or myalgias. No rashes or lesions and she does not report any increased anxiety or depression. While in the emergency room, the patient had routine lab work drawn. He was given a total of 30 mg of morphine to help assist in controlling his pain. He did have a CT of the abdomen, which showed a possible partial small bowel obstruction. He was also seen by Dr. Valero, who has recommended that the patient go to the OR for exploratory surgery due to the concern of possible volvulus. PAST MEDICAL HISTORY: Significant for: 1. BPH. 2. Microscopic colitis. 3. Hyperlipidemia. 4. Hypertension. 5. Lung cancer, status post resection. PAST SURGICAL HISTORY: 1. Bilateral hernia repairs. 2. Total hip. 3. Sinus surgery. 4. Lung resection on 07/02/17. MEDICATIONS: Home medications include: 1. Florinef 0.1 mg p.o. daily. 2. Norvasc 10 mg p.o. daily. 3. Avodart 0.5 mg p.o. daily. 4. BuSpar 5 mg p.o. t.i.d. 5. Potassium chloride 20 mEq p.o. daily. 6. Mag citrate 15 mL p.o. b.i.d. 7. Melatonin 3 mg p.o. daily. 8. Atorvastatin 40 mg p.o. q.p.m. 9. Alprazolam 0.25 mg p.o. daily p.r.n. 10. Omeprazole 40 mg p.o. daily. 11. Lunesta 3 mg p.o. at bedtime. 12. Flomax 0.4 mg p.o. daily. ALLERGIES TO MEDICATIONS: No known drug allergies. FAMILY HISTORY: Father at the age of 56 of an [place]. No reported history of diabetes. Sister with a history of breast cancer. SOCIAL HISTORY: The patient does not smoke. He does drink alcohol occasionally. No illicit drug use. He is retired. He is and lives with his . Surrogate decision maker in the event he is unable to make his own decisions is his . Her name is Anna Hidalgo, phone number is [phone]. He is a full code. REVIEW OF SYSTEMS: There is no documented fever. No significant weight change. There was no double vision. No ear discharge. No rhinorrhea. No sore throat. No thyroid enlargement. Denies any chest pain. There is no orthopnea or nocturnal dyspnea. There was severe mid abdominal pain at home. He was positive for nausea. No vomiting or diarrhea. No urinary frequency or urgency. There was no seizures, loss of consciousness. No pruritus or skin ulcerations. A review of 14 systems was completed and all others were negative. PHYSICAL EXAMINATION GENERAL: At this time, Mr. Hidalgo is a 73-year-old male who appears fatigued, resting on the stretcher in the emergency room. He does not appear to be in any acute distress at this time. VITAL SIGNS: Blood pressure is 140/72, heart rate was 89, respirations 14, O2 saturation 97% on room air, temperature was 98.4. HEENT: Head is atraumatic, normocephalic. Eyes: EOMs are intact. Sclerae anicteric and not pale. Oral mucosa appeared to be moist. NECK: Supple. LUNGS: Clear to auscultation bilaterally. No wheezes, rales, or rhonchi. CARDIAC: S1, S2. Regular rate and rhythm. No murmurs, rubs, or gallops. ABDOMEN: Soft. There is no tenderness with palpation at this time. Bowel sounds are present x4. EXTREMITIES: Pulses are +2 throughout. He is able to move all 4 extremities with 5/5 strength. NEUROLOGIC: He is awake. He is alert and oriented x3. He does report he feels confused due to the amount of morphine he has received. His speech is clear. There are no gross focal deficits. SKIN: Intact. DIAGNOSTIC STUDIES AND LABORATORY DATA: WBCs were 5.0, RBCs 4.02, hemoglobin 12.4, hematocrit was 35, platelet count was 210. Sodium 140, potassium 3.4, chloride 104, carbon dioxide was 21, anion gap was 15, BUN was 19, creatinine 1.61, which appears to be at his baseline, glucose was 114. Total bilirubin was 0.70, ASTs were 15, ALTs were 10, alkaline phosphatase was 124. Lipase was 23. He had a CT of the abdomen and pelvis, which showed visualized lung bases are grossly clear, there is no pleural effusion. CT findings consistent with either partial small bowel obstruction or infectious or inflammatory ileitis. There is a small amount of perihepatic and perisplenic fluid as well as infiltration of the mesenteric fat with a trace of ascites. There is pericholecystic fluid, which is suspected to be adjacent fluid due to the after mentioned findings and recommended if the patient is exhibiting signs of acute cholecystitis, superior characterization with a gallbladder ultrasound is recommended. Diverticulosis without inflammatory changes characteristic of diverticulitis, also chronic degenerative findings. An electrocardiogram, which showed a sinus rhythm at a rate of 77. ASSESSMENT AND PLAN: Mr. Hidalgo is a 73-year-old male who presented to emergency room today with complaints of severe abdominal pain. Due to his abdominal pain, we were asked to see and evaluate him for admission. He will be admitted inpatient for: 1. Abdominal pain. I suspect this is related to a partial bowel obstruction or possible volvulus. The patient was seen in consultation with Dr. Valero who is taking him to the OR for exploratory lap. At this time, the patient has had no history of chest pain. He is able to carry out his daily activities. He is able to sleep flat in bed. He has had no nocturnal dyspnea or orthopnea. He is able to climb a flight of stairs without development of chest pain or shortness of breath. His most recent transthoracic echocardiogram was completed on 04/09/17. Conclusion at that time, his EF was 60 to 65%. Left atrium is mildly dilated, right atrium is mildly dilated. There is moderate mitral regurgitation, moderate to severe tricuspid regurgitation. There is evidence of moderate pulmonary hypertension and there is borderline dilation of the ascending aorta, but no significant pericardial effusion was seen at that time. The patient has an RCRI surgical risk score of 1 giving him 0.9% risk, but this does not include the patient does have a history of lung resection and elevated creatinine and they should plan into consideration of risks of surgery. The patient does also have an echo that shows moderate pulmonary hypertension. At this time, the patient does not need any further workup for surgery. At this point, he is an acceptable candidate to proceed with surgery. 2. Hypertension. He should continue on his Norvasc postoperatively. 3. Hyperlipidemia. He is on atorvastatin. He should continue atorvastatin 40 mg postoperatively. 4. History of lung cancer. This is not a current issue at this time. 5. Hypokalemia. The patient does have potassium level of 3.4. We will repeat a BMP in the a.m. 6. FEN. He will be n.p.o. at this time. Diet per surgery. 7. Code status. He is a full code. 8. DVT prophylaxis. As per Surgery. 9. Disposition. He will be placed inpatient on short-stay surgical. We will continue to follow along in this case with Surgery for co-management of his hypertension, hyperlipidemia and for any other medical needs. TIME SPENT: On this admission was approximately 60 minutes, greater than half the time was spent [id number] with the patient obtaining my medical history and physical, the other half of the time was spent going over my plan of care and implementing my plan of care. At this time, attending physician care will be transferred to Dr. Valero. I have discussed this with my attending physician, Dr. Haider Scott, he is in agreement with my plan. CORTNEY MATIAS, SPECIAL EDUCATION TEACHING ASSISTANT [id number]/[facility] #: [id number] [place]
[2018-07-11 22:43] LABS: Urine Appearance Clear; Urine Bacteria Absent (Absent); Urine Bilirubin Negative (Negative); Urine Blood 3+ (Negative); Urine Color Straw; Urine Glucose Negative (Negative); Urine Ketones Negative (Negative); Urine Nitrite Negative (Negative); Urine Protein Negative (Negative); Urine Red Blood Cell 3+(>10/hpf) (Absent); Urine Urobilinogen Negative (Negative); Urine White Blood Cell Trace(0-5/hpf) (Absent)
--- NOTE | 2018-07-12 01:42 | OP ---
CC: Dr. Horner, [place] [facility] at [facility] * DATE OF OPERATION: 07/11/18 - ROOM #336 DATE OF : 41 SURGEON: Kvng Valero MD ATHLETE MARKETING AGENT: None. ANESTHESIOLOGIST: Dr. Apple. ANESTHESIA: General with local. PRE-OP DIAGNOSIS: Severe abdominal pain and abnormal CT scan showing concern for internal hernia. POST-OP DIAGNOSES: 1. Severe abdominal pain and abnormal CT scan showing concern for internal hernia. 2. Adhesive band causing a loop of small bowel obstruction and acute ischemia without evidence of gangrene or perforation. OPERATIVE PROCEDURE: Diagnostic laparoscopy and subsequent laparoscopic lysis of adhesions. ESTIMATED BLOOD LOSS: Minimal. IV FLUIDS: 1.6 L of crystalloids. SPECIMENS: None. WOUND CLASSIFICATION: 1. DRAINS: None. DESCRIPTION OF PROCEDURE: Written informed consent was obtained. The abdomen was marked with indelible ink and the patient received preoperative IV antibiotics. He was taken to the operating room and placed in the supine position. General anesthesia was administered. A Ritter catheter was inserted as well as SCDs and a warming blanket. The abdomen was prepped and draped in the usual sterile fashion. Time-out verification was completed. A vertical incision was made just below the umbilicus at the midline, the peritoneal cavity was entered under direct vision. A 12-mm blunt port was inserted. The abdomen was insufflated to 15 mmHg. There was serosanguineous fluid in all 4 quadrants of the abdomen on inserting the camera. Under direct vision, a 5-mm port was placed in the right mid to lower abdominal wall and we were able to visualize immediately several loops of small bowel in the right upper quadrant, which were dusky and reddened in color with mesentery , which was quite edematous, all consistent with apparent ischemia. A second 5-mm port was placed in the right upper abdominal wall and using careful manipulation, I was able to identify an adhesive band, which appeared to be to the omentum to the retroperitoneum that with 2 separate loops of small bowel has became trapped and ischemic. Once I divided this, I was able to free up all the bowel. It was evaluated and it did not appear to be frankly necrotic and I did not feel that these areas need to be resected. I next evaluated the right colon and identified the cecum. We then identified the terminal ileum and followed this retrograde back up into the area to assure self that all the bowel had been freed up, which it was. Also went more proximal and there was no abnormality noted up to what I felt was just about to the ligament of Treitz. This appeared to be a benign adhesive band with no evidence of malignancy and this was considered in light of his history of lung cancer. The ascitic fluid was irrigated and suctioned. All ports removed under direct vision of the camera. There was no abdominal wall bleeding. The umbilical fascia was closed with interrupted 0 Vicryl suture. The skin at all 3 incisions was approximated with subcuticular 4-0 Vicryl suture. Steri-Strips were applied. The patient tolerated the procedure well, was taken to the recovery room in stable condition. [id number]/[facility] #: [id number] [place]
[2018-07-12] MEDS: NS 0.9% 1000 ML* 1,000 ML IV SCH ×2 (05:28→12:58)
[2018-07-12 05:59] LABS: ABS Basophils 0 10^3/ul (0-0.2); ABS Eosinophils 0.1 10^3/ul (0-0.6); ABS Lymphocytes 0.8 10^3/ul (1.0-4.8); ABS Monocytes 0.5 10^3/ul (0-0.8); ABS Neutrophils 6.3 10^3/ul (1.5-7.7); ABS Nucleated RBC 0 10^3/ul; Eosinophil % 0.8 % (0-6); Hematocrit 26 % (42-52); Hemoglobin 9.2 g/dl (14.0-18.0); Lymphocyte % 10.4 % (25-47); Mean Corpuscular HGB Conc 36 g/dl (31-36); Mean Corpuscular Hemoglobin 32 pg (27-31); Mean Corpuscular Volume 87 fL (80-94); Mean Platelet Volume 6.7 fL (7.4-10.4); Nucleated Red Blood Cells % 0; Platelet Count 160 10^3/ul (150-450); Red Blood Count 2.92 10^6/ul (4.00-5.40); Red Cell Distribution Width 14 % (10.5-15); White Blood Count 7.7 10^3/ul (3.5-10.8)
[2018-07-12 06:22] LABS: BUN/Creatinine Ratio 10.2 (8-20); Calcium 8.6 mg/dL (8.6-10.3); EGFR Non-African American 55.3 (>60); Potassium 3.5 mmol/L (3.5-5.0)
[2018-07-12 10:17] LABS: INR 0.9 (0.77-1.02)
[2018-07-12] MEDS: Heparin VIAL(*) 5000 UNITS/ML VIAL (FIVE THOUSAND) SUBCUT SCH ×2 (14:02→21:32)
[2018-07-12] MEDS ORDERED: NS 0.9% 1000 ML* 1,000 ML IV SCH (14:49)
--- NOTE | 2018-07-12 14:52 | PN ---
Progress Note - Progress Note Date of Service: 07/12/18 SOAP: Subjective: Pt intially seen at 0830 Tolerating clear liquids Passing flatus Pain is controlled Ambulating in halls Objective: Temp Pulse Resp BP Pulse Ox 98.2 F 73 16 127/66 95 07/12/18 11:38 07/12/18 11:38 07/12/18 11:38 07/12/18 11:38 07/12/18 11:38 Intake & Output 07/10/18 07/11/18 07/12/18 07/13/18 07:59 06:59 06:59 06:59 Intake Total 4030 1470 Output Total 1800 950 Balance 2230 520 Weight 160 lb Intake: IV Fluids 3370 910 LR 1800 NS (0.9%) 1470 910 NS 100ML, Zosyn 3.375G 100 Oral 660 560 Output: Urine 450 150 Ritter 1300 800 Estimated Blood Loss 50 Other: Estimated Void Medium Pex: Abd is soft and non-distended. Incisions are clean and dry. Bowel sounds are present but hypoactive. Lungs are clear Assessment: POD#1 s/p laparoscopic lysis of adhesions-SBO/internal hernia Ileus-resolving Plan: Advance diet--decrease IVF Increase activity Plan d/c tomorrow if tolerating po
[2018-07-12] MEDS ORDERED: Zolpidem TAB* 5 MG PO PRN (15:10)
[2018-07-12] MEDS ORDERED: ALPRAZolam TAB* 0.25 MG PO PRN (18:44)
--- NOTE | 2018-07-12 18:53 | PN ---
Subjective Date of Service: 07/12/18 Interval History: Pt reports he is doing well and hope to go home tomorrow. He is tolerated his diet well. Pain is controlled. Denies dizziness. Objective Active Medications: Acetaminophen (Tylenol Tab*) 650 mg PO Q6H PRN PRN Reason: FEVER Last Admin: 07/12/18 05:32 Dose: 650 mg Alprazolam (Xanax Tab*) 0.25 mg PO DAILY PRN PRN Reason: ANXIETY Atorvastatin Calcium (Lipitor*) 40 mg PO QPM BREANA Buspirone HCl (Buspar Tab*) 5 mg PO TID BREANA Dutasteride (Avodart (Nf)) 0.5 mg PO DAILY [facility]; Protocol Fludrocortisone Acetate (Florinef Tab*) 0.1 mg PO DAILY [facility] Heparin Sodium (Porcine) (Heparin Vial(*)) 5,000 units SUBCUT Q8HR BREANA Last Admin: 07/12/18 14:02 Dose: 5,000 units Sodium Chloride (Ns 0.9% 1000 Ml*) 1,000 mls @ 50 mls/hr IV PER RATE [facility] Melatonin (Melatonin) 3 mg PO BEDTIME [facility]; Protocol Morphine Sulfate (Morphine Vial*) 2 mg IV Q4H PRN PRN Reason: PAIN - MILD Non-Formulary Medication (Amlodipine Besylate [Norvasc 10 Mg Tab]) 10 mg PO DAILY [facility] Omeprazole (Prilosec Cap*) 40 mg PO DAILY [facility] Ondansetron HCl (Zofran Inj*) 4 mg IV Q6H PRN PRN Reason: NAUSEA Last Admin: 07/12/18 05:37 Dose: 4 mg Potassium Chloride (Klor-Con Liquid*) 20 meq PO DAILY [facility] Tamsulosin HCl (Flomax Cap*) 0.4 mg PO DAILY BREAAN Zolpidem Tartrate (Ambien Tab*) 5 mg PO BEDTIME PRN PRN Reason: INSOMNIA Vital Signs - 8 hr 07/12/18 11:38 Temperature 98.2 F Pulse Rate 73 Respiratory 16 Rate Blood Pressure 127/66 (mmHg) O2 Sat by Pulse 95 Oximetry Oxygen Devices in Use Now: None Appearance: 73 yo well developed male sitting up on the side of the bed in NAD. A+O x3 Eyes: No Scleral Icterus, PERRLA Ears/Nose/Mouth/Throat: NL Teeth, Lips, Gums, Mucous Membranes Moist Neck: NL Appearance and Movements; NL JVP Respiratory: Symmetrical Chest Expansion and Respiratory Effort, Clear to Auscultation Cardiovascular: NL Sounds; No Murmurs; No JVD, RRR, No Edema Abdominal: NL Sounds; No Tenderness; No Distention, - - laproscopic incisions intact C&D Extremities: No Edema, No Clubbing, Cyanosis Skin: No Rash or Ulcers, No Nodules or Sclerosis Neurological: Alert and Oriented x 3, NL Muscle Strength and Tone Lines/Tubes/Other Access: Clean, Dry and Intact Peripheral IV Nutrition: Taking PO's Result Diagrams: 07/12/18 05:39 07/12/18 05:39 Assess/Plan/Problems-Billing Assessment: - Patient Problems (1) Ileus Comment: - s/p laparoscopc lysis of adhesion with SBO/internal hernia - ileus resolving - tolerating diet (2) Anxiety Comment: - controlled - continue Buspar and xanax (3) HTN (hypertension) Comment: continue norvasc (4) Adenocarcinoma, lung Comment: - not a current problem. (5) BPH (benign prostatic hyperplasia) Comment: continue flomax (6) HLD (hyperlipidemia) Comment: continue statin (7) CKD (chronic kidney disease) Comment: appears to be at baseline (8) DVT prophylaxis Comment: HSQ (9) Full code status Status and Disposition: inpatient. Dispo per Surgery team. Most likely DC tomorrow.
[2018-07-12] MEDS ORDERED: Melatonin 3 MG TAB PO SCH (21:00)
[2018-07-12] MEDS ORDERED: ESZOPICLONE 2 MG PO SCH (21:00)
[2018-07-12] MEDS: busPIRone TAB* 5 MG PO SCH (21:32)
[2018-07-13] MEDS ORDERED: Ziprasidone IM INJ* 20 MG/ML VIAL IM ONE (04:34)
[2018-07-13 06:09] LABS: BUN/Creatinine Ratio 7.4 (8-20); Calcium 9.2 mg/dL (8.6-10.3); EGFR Non-African American 51.5 (>60); Potassium 3.2 mmol/L (3.5-5.0)
[2018-07-13] MEDS: Heparin VIAL(*) 5000 UNITS/ML VIAL (FIVE THOUSAND) SUBCUT SCH (06:48)
[2018-07-13 07:27] VITALS: BP 149/79
[2018-07-13] MEDS: busPIRone TAB* 5 MG PO SCH (07:28)
[2018-07-13] MEDS ORDERED: Omeprazole CAP (NF) 20 MG CAP.DR PO SCH (07:30)
[2018-07-13] MEDS ORDERED: Potassium Chloride LIQUID* 20 MEQ PACKET PO SCH (09:00)
[2018-07-13] MEDS ORDERED: Finasteride TAB* 5 MG PO SCH (09:00)
[2018-07-13] MEDS ORDERED: Tamsulosin CAP* 0.4 MG PO SCH (09:00)
[2018-07-13] MEDS ORDERED: amLODIPine TAB* 5 MG PO SCH (09:00)
[2018-07-13] MEDS ORDERED: Fludrocortisone Acetate TAB* 0.1 MG PO SCH (09:00)
[2018-07-13 10:14] LABS: Magnesium 1.7 mg/dL (1.9-2.7)
[2018-07-13] MEDS ORDERED: Magnesium Sulfate 2 GM IV* 2 GM/50 ML BAG IVPB ONE (11:30)
[2018-07-13] MEDS ORDERED: Potassium Chlor TAB* 20 MEQ TAB.ER PO ONE (11:31)
[2018-07-13] MEDS ORDERED: Atorvastatin* 40 MG TAB PO SCH (18:00)
--- NOTE | 2018-07-13 21:27 | DS ---
AMENDED REPORT NOW INCLUDES DESIGNATED COSIGNER CC: Dr. Horner at [facility] DISCHARGE SUMMARY: ATTENDING PHYSICIAN: Dr. Kvng Valero.* (DICTATED BY DANIEL JON) DATE OF ADMISSION: 07/11/18 DATE OF DISCHARGE: 07/13/18 HOSPITAL COURSE: Please refer to admission history and physical and operative note for details. Briefly, the patient was admitted with small bowel obstruction with no prior history of abdominal surgeries. He was taken to the operating room by Dr. Valero and underwent laparoscopic lysis of adhesions. He has had an otherwise uneventful postoperative course and has been advanced to full liquid diet, which he is tolerating well as of the morning of discharge. He reports no pain. His daughter does report some confusion last evening, which is consistent with his baseline history of mild occasional confusion, but was more pronounced. He appears to be very clear and oriented mentally this morning. PHYSICAL EXAMINATION: The morning of discharge, he is afebrile and his vital signs are stable. Heart: Regular rate and rhythm. Lungs: Clear to auscultation. Abdomen: Laparoscopic sites are healing well without evidence of infection. There is some minimal ecchymosis in the dependent portion of the umbilical incision. Abdomen is soft and essentially nontender. IMPRESSION: Status post laparoscopic lysis of adhesions for small bowel obstruction, resolved. PLAN: Home today. Instructions were reviewed regarding wound care activity and diet. He will resume all of his usual prehospital medications. He has a followup appointment with our office on 07/20/18. He will not require prescriptions for postoperative analgesia. DANIEL JON [id number]/[facility] #: [id number] [facility] HOSPITALMark
== END 2018-07-13 11:25 | disposition home or self-care (01) | DRG 336 ==
LOC: ED 09:01 → OR 12:59 → SSU 17:36
PROVIDERS: ADMIT Surgery; ATTEND Surgery
PROC: 0DN84ZZ Release Small Intestine, Percutaneous Endoscopic Approach (ICD-10-PCS; principal; 2018-07-11 15:06)
DX: K56.50 Intestinal adhesions [bands], unspecified as to partial versus complete obstruction (principal); K55.9 Vascular disorder of intestine, unspecified; K91.89 Other postprocedural complications and disorders of digestive system; K46.9 Unspecified abdominal hernia without obstruction or gangrene; K56.7 Ileus, unspecified; F41.9 Anxiety disorder, unspecified; I12.9 Hypertensive chronic kidney disease with stage 1 through stage 4 chronic kidney disease, or unspecified chronic kidney disease; N18.9 Chronic kidney disease, unspecified; N40.0 Benign prostatic hyperplasia without lower urinary tract symptoms; E78.5 Hyperlipidemia, unspecified; Z85.118 Personal history of other malignant neoplasm of bronchus and lung; Z92.3 Personal history of irradiation; Z92.21 Personal history of antineoplastic chemotherapy; Z79.899 Other long term (current) drug therapy; Z87.891 Personal history of nicotine dependence
CPT/HCPCS: 36415; 74177; 80048; 80053; 81003; 81015; 83690; 83735; 85025; 85610; 85730; 87086; 93005; 99285; A9270-GY; J1644; J2270; J2405; J2543; J2704; J2710; J3010; J3486; Q9967

== ENCOUNTER 2018-07-14 09:25 | Observation (INO) | payer MEDICARE, BC ==
--- NOTE | 2018-07-14 09:44 | ED ---
Abdominal Pain/Male - HPI Summary HPI Summary: Patient is a 73 y/o M w/ c/o LLQ pain onsetting this morning. Patient had larascopic surgery performed three days ago for twisted bowel. Dr. Valero performed surgery. Patient was released yesterday with no complications. He had no pain yesterday and notes that he did some yardwork yesterday as well. Pain onset this morning and was described as severe. Pain has lessened since onset. He reports no bowel movement for the past two days and notes that he has not been passing gas. Patient has been eating and drinking fluids. Nausea is denied. No cardiac Hx, patient has Hx of lung cancer, had surgery to remove upper right lobe. Last CT showed patient to be currently cancer free. Patient denies fever, chills, FAUST, ear pain, sore throat, blurred vision, double vision, neck pain, CP, SOB, back pain, dysuria, hematuria, blood in the stool, edema, bruising, and rashes. Patient does note anxiety and has PMHx of this. On triage, pain is rated 8/10, movement is noted to aggravate Sx, nothing is reported to alleviate Sx. Home medications and allergies are reviewed. - History of Current Complaint Chief Complaint: EDAbdPain Stated Complaint: ABD PAIN Hx Obtained From: Patient Onset/Duration: Lasting Hours - onset this morning, Still Present, Other - lessened since onset Timing: Constant Severity Initially: Severe Severity Currently: Severe Pain Intensity: 8 Pain Scale Used: 0-10 Numeric - 8/10 Location: Discrete At: LLQ Aggravating Factor(s): Nothing Alleviating Factor(s): Nothing Associated Signs And Symptoms: Positive: Constipation, Other - denies chills, FAUST , ear pain, sore throat, blurred vision, double vision, neck pain, SOB, edema, bruising, and rashes. Negative: Fever, Chest Pain, Back Pain, Blood in Stool, Urinary Symptoms, Decreased Appetite, Nausea - Allergies/Home Medications Allergies/Adverse Reactions: Allergies Allergy/AdvReac Type Severity Reaction Status Date / Time No Known Allergies Allergy Verified 07/14/18 09:34 PMH/Surg Hx/FS Hx/Imm Hx Endocrine/Hematology History: Denies: Hx Diabetes Cardiovascular History: Reports: Hx Hypercholesterolemia, Hx Hypertension - on meds Denies: Hx Angina, Hx Coronary Artery Disease, Hx Myocardial Infarction, Hx Pacemaker/ICD, Hx Valvular Heart Disease, Other Cardiovascular Problems/ Disorders Respiratory History: Reports: Hx Lung Cancer, Other Respiratory Problems/ Disorders - LUNG CA, SURGERY TO REMOVE TUMOR JUNE 2017 Denies: Hx Asthma, Hx Chronic Obstructive Pulmonary Disease (COPD) GI History: Reports: Hx Gastroesophageal Reflux Disease Denies: Other GI Disorders History: Reports: Hx Benign Prostatic Hyperplasia, Other Problems/ Disorders - Enlarged Prostate Denies: Hx Renal Disease Musculoskeletal History: Reports: Hx Arthritis - rheumatoid Denies: Other Musculoskeletal History Sensory History: Reports: Hx Contacts or Glasses Denies: Hx Legally Blind, Hx Deafness, Hx Hearing Aid Opthamlomology History: Reports: Hx Contacts or Glasses Denies: Hx Legally Blind Neurological History: Denies: Hx Dementia - forgetfulnes, Other Neuro Impairments/Disorders Psychiatric History: Reports: Hx Anxiety - no meds Denies: Hx Panic Disorder - Cancer History Cancer Type, Location and Year: LUNG CARCINOMA Hx Chemotherapy: Yes - Surgical History Surgery Procedure, Year, and Place: LEFT HIP replacement, 2009, [facility]. 2 sinus. 2 hernia repairs Hx Anesthesia Reactions: No Infectious Disease History: No Infectious Disease History: Denies: Traveled Outside the [place] in Last 30 Days - Family History Known Family History: Positive: Cardiac Disease - Father at age 56 during CABG operation. - Social History Alcohol Use: Rare Alcohol Amount: "social" Substance Use Type: Reports: None Smoking Status (MU): Former Smoker Type: Cigarettes Amount Used/How Often: pack a day for 30 yrs Have You Smoked in the Last Year: No Review of Systems Negative: Fever, Chills Positive: Other - NEGATIVE: double vision . Negative: Blurred Vision Negative: Sore Throat, Ear Ache Negative: Chest Pain Negative: Shortness Of Breath Positive: Abdominal Pain - LLQ . Negative: Nausea Positive: other - NEGATIVE: blood in stool, abnormal PO intake POSITIVE: constipation, difficulty passing gas . Negative: dysuria, hematuria Positive: Other - NEGATIVE: neck, back pain . Negative: Edema Negative: Rash, Bruising Negative: Headache Positive: Anxious All Other Systems Reviewed And Are Negative: No Physical Exam - Summary Physical Exam Summary: Appearance: Alert, conversive, nontoxic appearing Skin: Warm, dry, no mottling, no rashes, no contusions HEENT: EOMI, PERRL, dry mucous membranes Neck: No masses on the neck, supple Respiratory: Clear to auscultation, breath sounds present, no rales, no rhonchi , no wheezes; tachypnea Cardiovascular: RRR, pulses are symmetrical in both lower and upper extremities Abdomen: Soft, diffuse tenderness; patient has three incisions at LLQ, all CDI. Bowel Sounds: Present Musculoskeletal: No CVA tenderness, no obvious deformity, moving all extremities in a grossly normal manner; port at right chest. Neurological: A&Ox3, CN II-XII Intact, moving all extremities symmetrically Psychiatric: Anxious Triage Information Reviewed: Yes Vital Signs On Initial Exam: Initial Vitals Temp Pulse Resp BP Pulse Ox 98.8 F 86 16 93/80 99 07/14/18 09:28 07/14/18 09:28 07/14/18 09:28 07/14/18 09:28 07/14/18 09:28 Vital Signs Reviewed: Yes Diagnostics - Vital Signs Vital Signs Temp Pulse Resp BP Pulse Ox 07/14/18 09:28 98.8 F 86 16 93/80 99 - Laboratory Result Diagrams: 07/15/18 05:10 07/15/18 05:10 Lab Statement: Any lab studies that have been ordered have been reviewed, and results considered in the medical decision making process. - Radiology CXR Radiology Interpretation Completed By: Radiologist Summary of Radiographic Findings: IMPRESSION: SMALL RIGHT PLEURAL EFFUSION AND BASILAR INFILTRATE. THIS REPORT WAS REVIEWED BY ED PHYSICIAN. ABODMEN X-RAY Radiology Interpretation Completed By: Radiologist Summary of Radiographic Findings: IMPRESSION: NO EVIDENCE FOR OBSTRUCTION. THIS REPORT WAS REVIEWED BY ED PHYSICIAN. - EKG 1140 Cardiac Rate: NL - rate of 65 BPM EKG Rhythm: Sinus Rhythm Summary of EKG Findings: normal QRS, slightly prolonged QTc, non-specific ST-T wave changes Re-Evaluation - Re-Evaluation First Eval Re-Evaluation Time: 10:44 Change: Improved Comment: pain is better, still anxious, patient to be given Ativan. Second Eval Re-Evaluation Time: 11:00 Change: Unchanged Comment: Discussed imaging with patient, labs are pending at this time. Abdominal Pain Fem Course/Dx - Course Course Of Treatment: Patient is a 73 y/o M w/ c/o LLQ pain onsetting this morning. Patient had larascopic surgery performed three days ago for twisted bowel. Dr. Valero performed surgery. Patient was released yesterday with no complications. He had no pain yesterday and notes that he did some yardwork yesterday as well. Pain onset this morning and was described as severe. Pain has lessened since onset. He reports no bowel movement for the past two days and notes that he has not been passing gas. Patient has been eating and drinking fluids. Nausea is denied. No cardiac Hx, patient has Hx of lung cancer , had surgery to remove upper right lobe. Last CT showed patient to be currently cancer free. Patient denies fever, chills, FAUST, ear pain, sore throat , blurred vision, double vision, neck pain, CP, SOB, back pain, dysuria, hematuria, blood in the stool, edema, bruising, and rashes. Patient does note anxiety and has PMHx of this. On physical exam, patient is noted to be anxious and hypotensive. Patient also has tachypnea, midl diffuse abdominal tenderness, and dry mucous membranes. Patient has three incisions at LLQ, all CDI as well as a port at right chest. During ED course, patient received fluids, Ativan 1 mg IV, and fentanyl 50 mcg IV ONCE. Labs showed lipase 15, CRP 17.58, trop 0, Alk phos 79, ALT 12, AST 21, magnesium 1.6, lactic acid 3.1, creatinine 1.5, anion gap 13, glucose 100, RBC 3.51, Hgb 10.9, Hct 30. CXR IMPRESSION: SMALL RIGHT PLEURAL EFFUSION AND BASILAR INFILTRATE. ABDOMEN X-RAY IMPRESSION: NO EVIDENCE FOR OBSTRUCTION. EKG showed normal sinus rhythm with rate of 65 BPM, normal QRS, slightly prolonged QTc, non-specific ST-T wave changes. 1200 - Dr. Valero, who performed surgery, was in ED. Patient's case was discussed with him, he agrees to admit patient to his services. Dx of abdominal pain. - Diagnoses Provider Diagnoses: Abdominal pain - Provider Notifications Discussed Care Of Patient With: Kvng Valero Time Discussed With Above Provider: 12:00 Instructed by Provider To: Other - 1200 - Dr. Valero, who performed surgery, was in ED. Patient's case was discussed with him, he agrees to admit patient to his services. Discharge - Sign-Out/Discharge Documenting (check all that apply): Patient Departure - admit - Discharge Plan Condition: Good Disposition: ADMITTED TO [facility] - Billing Disposition and Condition Condition: GOOD Disposition: Admitted to [facility] - Attestation Statements Document Initiated by Raysa: Yes Documenting Scribe: Nirmal De Jesus Provider For Whom Raysa is Documenting (Include Credential): Sandra Mares MD Scribe Attestation: Nirmal Morales , scribed for Sandra Mares MD on 07/15/18 at 1003. Scribe Documentation Reviewed: Yes Provider Attestation: The documentation as recorded by the ivaibNirmal patel accurately reflects the service I personally performed and the decisions made by me, Sandra Mares MD
[2018-07-14] MEDS ORDERED: NS 0.9% 500 ML* 500 ML IV ONE (10:02)
[2018-07-14] MEDS ORDERED: fentaNYL* 50 MCG/ML 2 ML VIAL (100 MCG VIAL) IV SLOW PU ONE (10:02)
[2018-07-14] MEDS ORDERED: LORazepam INJ* 2 MG/ML 1 ML VIAL IV PUSH ONE (10:44)
[2018-07-14 11:14] LABS: ABS Basophils 0 10^3/ul (0-0.2); ABS Eosinophils 0.1 10^3/ul (0-0.6); ABS Lymphocytes 0.5 10^3/ul (1.0-4.8); ABS Monocytes 0.5 10^3/ul (0-0.8); ABS Neutrophils 3.1 10^3/ul (1.5-7.7); ABS Nucleated RBC 0 10^3/ul; Eosinophil % 2.5 % (0-6); Hematocrit 30 % (42-52); Hemoglobin 10.9 g/dl (14.0-18.0); Lymphocyte % 12.4 % (25-47); Mean Corpuscular HGB Conc 36 g/dl (31-36); Mean Corpuscular Hemoglobin 31 pg (27-31); Mean Corpuscular Volume 86 fL (80-94); Nucleated Red Blood Cells % 0; Platelet Count 165 10^3/ul (150-450); Red Blood Count 3.51 10^6/ul (4.00-5.40); Red Cell Distribution Width 14 % (10.5-15); White Blood Count 4.2 10^3/ul (3.5-10.8)
[2018-07-14 11:34] LABS: EGFR Non-African American 45.6 (>60)
[2018-07-14] MEDS ORDERED: Ondansetron INJ* 2 MG/ML VIAL IV PRN (12:14)
[2018-07-14] MEDS ORDERED: Acetaminophen TAB* 325 MG PO PRN (12:17)
[2018-07-14] MEDS ORDERED: NS 0.9% 1000 ML* 1,000 ML IV ONE (12:17)
[2018-07-14] MEDS ORDERED: Morphine VIAL* 4 MG/ML VIAL (1 ml vial) IV PRN (12:17)
[2018-07-14] MEDS ORDERED: Potassium Chlor TAB* 20 MEQ TAB.ER PO ONE (12:28)
[2018-07-14] MEDS: KCL 10 MEQ/50 ML IVPREMIX* 10 MEQ/50 ML BAG IV SCH ×3 (12:47→16:05)
--- NOTE | 2018-07-14 14:40 | HP ---
CC: [facility]; Dr. Sofia Saini, Oncology * ADMISSION HISTORY AND PHYSICAL: DATE OF ADMISSION: 07/14/18 CHIEF COMPLAINT: Abdominal pain. HISTORY OF PRESENT ILLNESS: Mr. Hidalgo is a 73-year-old gentleman who presented to the emergency room on Thursday morning with a sudden onset of severe abdominal discomfort. I saw him in surgical consultation after a CAT scan showed an abnormal loop of small bowel. On Thursday, he was taken to the operating room for an emergent diagnostic laparoscopy and was noted to have an internal hernia with bowel obstruction, secondary to an intraabdominal adhesion , which was lysed. The bowel, although edematous, appeared to be viable and no resection was performed. Postoperatively, he did well and his ileus resolved and he remained afebrile with resolution of his abdominal discomfort. His diet was advanced as tolerated and he was discharged home yesterday tolerating a full liquid diet, passing flatus and had a bowel movement on Thursday evening. He has been at home with his . He has not been taking any further narcotic analgesics. Apparently, he developed sudden onset of left lower quadrant abdominal pain this morning and was brought back to the emergency room. He was noted to be afebrile with initial blood pressure of 90, but it resolved with 500 cc of saline to become hypertensive. He had no fevers. Laboratory workup included a white blood cell count of 4.2 with a hemoglobin of 10.9. He was noted to have a potassium of 2.8 with an anion gap of 13 with BUN and creatinine of 12 and 1.5. Also noted was a lactic acid of 3.1. He received 500 cc of saline in the emergency room with normalization of his blood pressure. He also received some narcotic analgesia. At present, he states his abdominal pain has resolved. He is hungry. He has been sitting on the commode at the bedside and said he has been passing flatus. His is also present. In addition, he underwent abdominal x-rays, which showed no evidence of obstruction, but a small amount of air throughout the entire small bowel and air into the colon, including down into the rectal vault. PAST MEDICAL HISTORY: 1. Right lung cancer, status post right thoracoscopic resection. He has received chemotherapy. Treatment was approximately 1 year ago and he has done well. 2. Benign prostatic hypertrophy. 3. Anxiety. 4. Hypertension. 5. History of microscopic colitis. PAST SURGICAL HISTORY: 1. Bilateral inguinal hernia repairs. 2. Laparoscopy for bowel obstruction. 3. Hip surgery. 4. Right thoracoscopy. MEDICATIONS: Include: 1. Florinef 0.1 mg daily. 2. Norvasc 10 mg daily. 3. Avodart 0.5 mg p.o. daily. 4. BuSpar 5 mg p.o. t.i.d. 5. Potassium chloride 20 mEq daily. 6. Magnesium citrate. 7. Atorvastatin 40 mg daily. 8. Alprazolam 0.25 mg daily p.r.n. 9. Omeprazole 40 mg daily. 10. Lunesta 3 mg q.h.s. 11. Flomax 0.4 mg daily. ALLERGIES: He has no known drug allergies. SOCIAL HISTORY: He is . He does not smoke. 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 He does not use drugs. He lives with his and she is his surrogate decision maker. PHYSICAL EXAMINATION GENERAL: He is a well-developed, slender male, now appears in no apparent distress. Awake, alert, conversive, and quite pleasant. VITAL SIGNS: He is afebrile. Pulse 64, blood pressure 162/90. LUNGS: Clear to auscultation with normal respiratory effort. HEART: Regular rate and rhythm without murmurs, rubs, or gallops. ABDOMEN: Soft, nondistended. His prior laparoscopic incisions are all clean, dry, and intact with Steri-Strips in place. He has bowel sounds that are present without high-pitched or tingling. He has appropriate incisional tenderness. There is no peritoneal irritation, rigidity, or distention. EXTREMITIES: Showed no cyanosis or edema. IMPRESSION: Abdominal discomfort of a sudden onset in a patient who underwent an emergent laparoscopy on Thursday for an internal hernia caused by an intraabdominal adhesive band causing bowel ischemia. No resection was done at that time and he did well postoperatively and was discharged home just yesterday. He seems to be improved today; however, there is concern of his lactic acidosis , which appears to be new. Remainder of his laboratory workup is essentially unremarkable. Abdominal films were nonspecific. PLAN: I discussed all of the above with the patient and his . At this point, with his lactic acid being elevated for no clear reason, I recommend that we admit him today for observation and IV hydration. We will keep him n.p.o. I do not believe that a CT scan of the abdomen and pelvis will be helpful at this point as it may show some free air as well as free intraabdominal fluid. My concern obviously would be certainly another decision that he may require returning to the operating room with a laparoscopy later today if his pain recurs or his lactic acidosis does not resolve with IV hydration and repletion of his potassium. 1. We will admit him to the surgical stay unit. 2. We will keep him n.p.o. 3. IV fluids will be started. 4. His potassium will be repleted. 5. Lactic acid will be drawn at 3 o'clock today. 6. Repeat laboratory values will be performed in the morning. [id number]/[facility] #: [id number] SPENCER
[2018-07-14] MEDS: NS 0.9% 1000 ML* 1,000 ML IV SCH (16:04)
[2018-07-14] MEDS ORDERED: ALPRAZolam TAB* 0.25 MG PO PRN (17:24)
[2018-07-14] MEDS ORDERED: Atorvastatin* 40 MG TAB PO SCH (18:00)
--- NOTE | 2018-07-14 18:40 | PN ---
Progress Note - Progress Note Date of Service: 07/14/18 SOAP: Subjective: Feels much better-no abdominal pain No N/V Passing large amounts of flatus Hungry Objective: Temp Pulse Resp BP Pulse Ox 97.7 F 64 16 152/82 97 07/14/18 14:15 07/14/18 14:15 07/14/18 14:15 07/14/18 14:15 07/14/18 14:15 PEX; Comfortable-awake and alert Abd is soft and non-distended. Bowel sounds are present and are normal pitched and normoactive. Incisions clean and dry. There is no tenderness or guarding. Repeat Lactic acid 0.7 Assessment: Abdominal pain after laparoscopy for internal hernia on Thursday Pain now resolved-lactic acid normal No tachycardia, fever ??etiology of discomfort-I do not feel further work-up at this time necessary and no operative intervention indicated Plan: Continue observation IVF/NPO Repeat labs in AM All discussed with patient and his .
[2018-07-14] MEDS: busPIRone TAB* 5 MG PO SCH (20:19)
[2018-07-14] MEDS ORDERED: Zolpidem TAB* 10 MG PO SCH (21:00)
[2018-07-15] MEDS: NS 0.9% 1000 ML* 1,000 ML IV SCH ×2 (00:28→06:23)
[2018-07-15 06:23] LABS: ABS Basophils 0 10^3/ul (0-0.2); ABS Eosinophils 0.2 10^3/ul (0-0.6); ABS Lymphocytes 0.9 10^3/ul (1.0-4.8); ABS Monocytes 0.5 10^3/ul (0-0.8); ABS Neutrophils 2.6 10^3/ul (1.5-7.7); ABS Nucleated RBC 0 10^3/ul; Eosinophil % 4.8 % (0-6); Hematocrit 24 % (42-52); Hemoglobin 8.3 g/dl (14.0-18.0); Lymphocyte % 21.9 % (25-47); Mean Corpuscular HGB Conc 35 g/dl (31-36); Mean Corpuscular Hemoglobin 31 pg (27-31); Mean Corpuscular Volume 88 fL (80-94); Mean Platelet Volume 7.1 fL (7.4-10.4); Nucleated Red Blood Cells % 0.1; Platelet Count 139 10^3/ul (150-450); Red Cell Distribution Width 14 % (10.5-15); White Blood Count 4.3 10^3/ul (3.5-10.8)
[2018-07-15 06:33] LABS: EGFR Non-African American 53.8 (>60)
[2018-07-15 06:51] LABS: Urine Appearance Clear; Urine Blood Negative (Negative); Urine Color Straw; Urine Ketones Trace (Negative); Urine Protein Negative (Negative); Urine Specific Gravity 1.009 (1.010-1.030); Urine Urobilinogen Negative (Negative)
[2018-07-15] MEDS: busPIRone TAB* 5 MG PO SCH ×2 (08:58→13:52)
[2018-07-15] MEDS ORDERED: Fludrocortisone Acetate TAB* 0.1 MG PO SCH (09:00)
[2018-07-15] MEDS ORDERED: amLODIPine TAB* 5 MG PO SCH (09:00)
[2018-07-15] MEDS ORDERED: Omeprazole CAP* 20 MG PO SCH (09:00)
[2018-07-15] MEDS ORDERED: Potassium Chloride LIQUID* 20 MEQ PACKET PO SCH (09:00)
[2018-07-15] MEDS ORDERED: Tamsulosin CAP* 0.4 MG PO SCH (09:00)
[2018-07-15] MEDS ORDERED: Finasteride TAB* 5 MG PO SCH (09:00)
[2018-07-15] MEDS ORDERED: D5W 1/2 NS KCl 20 Meq 1000 ML* 1,000 ML IV SCH (10:00)
--- NOTE | 2018-07-15 13:21 | PN ---
Progress Note - Progress Note Date of Service: 07/15/18 SOAP: Subjective: Pt seen at 0815 this morning He did well overnight-no abdominal pain He is passing flatus and has good appetite Objective: Temp Pulse Resp BP Pulse Ox 98.3 F 63 16 153/74 98 07/15/18 07:20 07/15/18 07:20 07/15/18 07:20 07/15/18 07:20 07/15/18 07:20 Intake & Output 07/13/18 07/14/18 07/15/18 07/16/18 06:59 06:59 06:59 06:59 Intake Total 3513 851 Output Total 0 Balance 3513 851 Weight 155 lb Intake: IV Fluids 2403 451 IVPB 1110 Oral 0 400 Output: Urine 0 Other: # Bowel Movements 0 Document 07/15/18 06:00 [id number] (Rec: 07/15/18 06:03 [id number]) PEX: Comfortable Lungs are clear Abd is soft and non-distended. Bowel sounds are present and are normoactive. Incisions are clean and dry. No tenderness noted except at umbilical incision. Laboratory Results - last 24 hr 07/14/18 07/15/18 07/15/18 14:51 05:10 05:10 WBC 4.3 RBC 2.70 L Hgb 8.3 L Hct 24 L MCV 88 MCH 31 MCHC 35 RDW 14 Plt Count 139 L MPV 7.1 L Neut % (Auto) 61.3 Lymph % (Auto) 21.9 L Logan % (Auto) 10.9 H Eos % (Auto) 4.8 Baso % (Auto) 1.1 Absolute Neuts (auto) 2.6 Absolute Lymphs (auto) 0.9 L Absolute Monos (auto) 0.5 Absolute Eos (auto) 0.2 Absolute Basos (auto) 0 Absolute Nucleated RBC 0 Nucleated RBC % 0.1 Sodium 139 Potassium 3.4 L Chloride 107 Carbon Dioxide 25 Anion Gap 7 BUN 12 Creatinine 1.30 H Est GFR ( Amer) 65.1 Est GFR (Non-Af Amer) 53.8 BUN/Creatinine Ratio 9.2 Glucose 77 Lactic Acid 0.7 Calcium 8.0 L Urine Color Urine Appearance Urine pH Ur Specific [place] Urine Protein Urine Ketones Urine Blood Urine Nitrate Urine Bilirubin Urine Urobilinogen Ur Leukocyte Esterase Urine Glucose 07/15/18 06:00 WBC RBC Hgb Hct MCV MCH MCHC RDW Plt Count MPV Neut % (Auto) Lymph % (Auto) Logan % (Auto) Eos % (Auto) Baso % (Auto) Absolute Neuts (auto) Absolute Lymphs (auto) Absolute Monos (auto) Absolute Eos (auto) Absolute Basos (auto) Absolute Nucleated RBC Nucleated RBC % Sodium Potassium Chloride Carbon Dioxide Anion Gap BUN Creatinine Est GFR ( Amer) Est GFR (Non-Af Amer) BUN/Creatinine Ratio Glucose Lactic Acid Calcium Urine Color Straw Urine Appearance Clear Urine pH 7.0 Ur Specific [place] 1.009 L Urine Protein Negative Urine Ketones Trace A Urine Blood Negative Urine Nitrate Negative Urine Bilirubin Negative Urine Urobilinogen Negative Ur Leukocyte Esterase Negative Urine Glucose Negative Assessment: [] Recurrent abdominal pain after laparoscopic lysis of adhesions-pain now resolved and exam is benign, labs WNL No fever or tachycardia Not certain of etiology of pain but I do not think surgical Plan: Advance diet If tolerates, plan d/c later today. Discussed with patient.
[2018-07-15 13:25] VITALS: BP 152/71
== END 2018-07-15 14:40 | disposition home or self-care (01) ==
LOC: ED 09:25 → MED 12:54
PROVIDERS: ADMIT Surgery; ATTEND Surgery
DX: R10.32 Left lower quadrant pain (principal); I10 Essential (primary) hypertension; Z87.891 Personal history of nicotine dependence; F41.9 Anxiety disorder, unspecified; Z85.118 Personal history of other malignant neoplasm of bronchus and lung; K59.00 Constipation, unspecified; R51 Headache
CPT/HCPCS: 36415; 71045; 74018; 80048; 80053; 81003; 83605; 83690; 83735; 84484; 85025; 86140; 93005; 96361; 96374; 96375; 96376; 99284; A9270-GY; G0378; J1642; J2060; J3010; J3480

== ENCOUNTER 2020-08-09 12:36 | Inpatient (IN) ==
[2020-08-09 13:33] LABS: ABS Eosinophils 0.1 10^3/ul (0-0.6); ABS Lymphocytes 0.6 10^3/ul (1.0-4.8); ABS Monocytes 0.8 10^3/ul (0-0.8); ABS Neutrophils 4.6 10^3/ul (1.5-7.7); Eosinophil % 0.9 %; Hematocrit 32 % (42-52); Hemoglobin 10.6 g/dL (14.0-18.0); Lymphocyte % 10.1 %; Mean Corpuscular HGB Conc 33 g/dL (31-36); Mean Corpuscular Hemoglobin 28 pg (27-31); Mean Corpuscular Volume 83 fL (80-94); Mean Platelet Volume 8.2 fL (7.4-10.4); Nucleated Red Blood Cells % 0.1; Platelet Count 132 10^3/uL (150-450); Red Blood Count 3.79 10^6 /uL (4.18-5.48); Red Cell Distribution Width 16 % (10-15); White Blood Count 6.1 10^3/uL (3.5-10.8)
[2020-08-09 13:48] LABS: Albumin 3.4 g/dL (3.2-5.2); BUN/Creatinine Ratio 21.8 (8-20); Calcium 11.2 mg/dL (8.6-10.3); EGFR African American 71.7 (>60); EGFR Non-African American 59.3 (>60); Globulin 3.4 g/dL (2-4); Potassium 3.7 mmol/L (3.5-5.0); Total Bilirubin 0.8 mg/dL (0.2-1.0); Total Protein 6.8 g/dL (6.4-8.9)
[2020-08-09] MEDS ORDERED: Albuterol HFA INHALER 8 gm MDI INH PRN (16:12)
[2020-08-09] MEDS: fentaNYL PATCH 12 MCG/HR 1 PATCH TRANSDERM SCH (18:01)
[2020-08-09] MEDS: fentaNYL Patch Check Q Shift NOTE FOLLOW UP SCH (19:00)
[2020-08-09] MEDS ORDERED: Lorazepam PYXIS KEY PRN (19:13)
[2020-08-09] MEDS ORDERED: LORazepam 2 mg VIAL 1 ml IV PUSH ONE (19:13)
[2020-08-09] MEDS: Dexamethasone IV 4 MG/ML VIAL 1 ml VIAL IV SLOW PU SCH (22:29)
[2020-08-10 06:17] LABS: ABS Lymphocytes 0.5 10^3/ul (1.0-4.8); ABS Monocytes 0.3 10^3/ul (0-0.8); ABS Neutrophils 3.6 10^3/ul (1.5-7.7); Eosinophil % 0.2 %; Hematocrit 31 % (42-52); Hemoglobin 10.4 g/dL (14.0-18.0); Lymphocyte % 10.8 %; Mean Corpuscular HGB Conc 34 g/dL (31-36); Mean Corpuscular Hemoglobin 28 pg (27-31); Mean Corpuscular Volume 83 fL (80-94); Mean Platelet Volume 8.5 fL (7.4-10.4); Nucleated Red Blood Cells % 0.1; Platelet Count 127 10^3/uL (150-450); Red Blood Count 3.73 10^6 /uL (4.18-5.48); Red Cell Distribution Width 16 % (10-15); White Blood Count 4.4 10^3/uL (3.5-10.8)
[2020-08-10] MEDS: fentaNYL Patch Check Q Shift NOTE FOLLOW UP SCH ×2 (06:42→19:21)
[2020-08-10 07:16] LABS: Albumin 3.4 g/dL (3.2-5.2); Calcium 10.7 mg/dL (8.6-10.3); Potassium 4.2 mmol/L (3.5-5.0); Total Bilirubin 0.7 mg/dL (0.2-1.0)
[2020-08-10 07:22] LABS: BUN/Creatinine Ratio 21.1 (8-20); EGFR African American 79.4 (>60); EGFR Non-African American 65.6 (>60); Globulin 3.5 g/dL (2-4); Total Protein 6.9 g/dL (6.4-8.9)
[2020-08-10] MEDS: Enoxaparin 40 MG/0.4 ML SYR SUBCUT SCH (08:20)
[2020-08-10] MEDS: Potassium Chlor 20 meq TAB.ER PO SCH (08:21)
[2020-08-10] MEDS: Dexamethasone IV 4 MG/ML VIAL 1 ml VIAL IV SLOW PU SCH ×2 (08:23→22:00)
[2020-08-10] MEDS: PTO: OSIMERTINIB MESYLATE 80 MG TABLET (NF) PO SCH (08:24)
[2020-08-10] MEDS: HYDROmorphone 0.5 MG/0.5 ML SYRINGE IV SLOW PU PRN ×2 (12:38→18:35)
[2020-08-10] MEDS: NS 0.9% 1000 ml BAG 1,000 ML IV SCH (22:26)
[2020-08-11 05:00] LABS: ABS Lymphocytes 0.6 10^3/ul (1.0-4.8); ABS Monocytes 0.4 10^3/ul (0-0.8); ABS Neutrophils 4.5 10^3/ul (1.5-7.7); Eosinophil % 0.1 %; Hematocrit 28 % (42-52); Hemoglobin 9.3 g/dL (14.0-18.0); Lymphocyte % 10.5 %; Mean Corpuscular HGB Conc 34 g/dL (31-36); Mean Corpuscular Hemoglobin 28 pg (27-31); Mean Corpuscular Volume 83 fL (80-94); Mean Platelet Volume 8.2 fL (7.4-10.4); Nucleated Red Blood Cells % 0.1; Platelet Count 112 10^3/uL (150-450); Red Blood Count 3.32 10^6 /uL (4.18-5.48); Red Cell Distribution Width 16 % (10-15); White Blood Count 5.5 10^3/uL (3.5-10.8)
[2020-08-11 05:21] LABS: Albumin 3.1 g/dL (3.2-5.2); Albumin/Globulin Ratio 1.1 (1-3); BUN/Creatinine Ratio 25.5 (8-20); EGFR African American 89.7 (>60); EGFR Non-African American 74.2 (>60); Globulin 2.8 g/dL (2-4); Potassium 3.6 mmol/L (3.5-5.0); Total Bilirubin 0.7 mg/dL (0.2-1.0); Total Protein 5.9 g/dL (6.4-8.9)
[2020-08-11] MEDS: Senna TAB 8.6 mg TAB PO PRN ×2 (05:24→20:07)
[2020-08-11] MEDS: HYDROmorphone 0.5 MG/0.5 ML SYRINGE IV SLOW PU PRN ×2 (05:24→14:45)
[2020-08-11] MEDS: fentaNYL Patch Check Q Shift NOTE FOLLOW UP SCH ×2 (06:37→18:52)
[2020-08-11] MEDS: Dexamethasone IV 4 MG/ML VIAL 1 ml VIAL IV SLOW PU SCH ×2 (07:14→20:08)
[2020-08-11] MEDS: Enoxaparin 40 MG/0.4 ML SYR SUBCUT SCH (07:14)
[2020-08-11] MEDS: Potassium Chlor 20 meq TAB.ER PO SCH (07:15)
[2020-08-11] MEDS: PTO: OSIMERTINIB MESYLATE 80 MG TABLET (NF) PO SCH (07:16)
[2020-08-11] MEDS: NS 0.9% 1000 ml BAG 1,000 ML IV SCH ×2 (07:24→18:52)
[2020-08-11 17:53] LABS: Urine Appearance Clear; Urine Bilirubin Negative (Negative); Urine Blood Negative (Negative); Urine Color Yellow; Urine Glucose Negative (Negative); Urine Ketones Trace (Negative); Urine Nitrite Negative (Negative); Urine Protein Negative (Negative); Urine Specific Gravity 1.016 (1.010-1.030); Urine Urobilinogen Negative (Negative)
[2020-08-12 05:34] LABS: ABS Lymphocytes 0.5 10^3/ul (1.0-4.8); ABS Monocytes 0.5 10^3/ul (0-0.8); Hematocrit 28 % (42-52); Hemoglobin 9.5 g/dL (14.0-18.0); Lymphocyte % 8.7 %; Mean Corpuscular HGB Conc 34 g/dL (31-36); Mean Corpuscular Hemoglobin 28 pg (27-31); Mean Corpuscular Volume 83 fL (80-94); Mean Platelet Volume 8.6 fL (7.4-10.4); Platelet Count 110 10^3/uL (150-450); Red Blood Count 3.36 10^6 /uL (4.18-5.48); Red Cell Distribution Width 16 % (10-15); White Blood Count 6.1 10^3/uL (3.5-10.8)
[2020-08-12 05:45] LABS: Albumin 3.1 g/dL (3.2-5.2); Albumin/Globulin Ratio 1.1 (1-3); BUN/Creatinine Ratio 27.2 (8-20); Calcium 9.7 mg/dL (8.6-10.3); EGFR African American 96.5 (>60); EGFR Non-African American 79.8 (>60); Globulin 2.7 g/dL (2-4); Potassium 3.2 mmol/L (3.5-5.0); Total Bilirubin 0.8 mg/dL (0.2-1.0); Total Protein 5.8 g/dL (6.4-8.9)
[2020-08-12] MEDS ORDERED: Polyethylene Glycol 3350 17 GM PACKET PO PRN (06:32)
[2020-08-12] MEDS ORDERED: KCL 20 MEQ/100 ML IVPREMIX 20 MEQ/100 ML BAG IV ONE (06:40)
[2020-08-12] MEDS: fentaNYL Patch Check Q Shift NOTE FOLLOW UP SCH ×2 (06:58→19:19)
[2020-08-12] MEDS: Enoxaparin 40 MG/0.4 ML SYR SUBCUT SCH (08:30)
[2020-08-12] MEDS: Dexamethasone IV 4 MG/ML VIAL 1 ml VIAL IV SLOW PU SCH ×2 (08:31→21:38)
[2020-08-12] MEDS: Potassium Chlor 20 meq TAB.ER PO SCH (08:32)
[2020-08-12] MEDS: HYDROmorphone 0.5 MG/0.5 ML SYRINGE IV SLOW PU PRN ×2 (08:57→14:41)
[2020-08-12] MEDS: PTO: OSIMERTINIB MESYLATE 80 MG TABLET (NF) PO SCH (09:13)
[2020-08-12] MEDS: NS 0.9% 1000 ml BAG 1,000 ML IV SCH (12:23)
[2020-08-12] MEDS: fentaNYL PATCH 12 MCG/HR 1 PATCH TRANSDERM SCH (14:39)
[2020-08-12] MEDS ORDERED: HYDROmorphone 0.5 MG/0.5 ML SYRINGE IV SLOW PU PRN (15:26)
[2020-08-12] MEDS ORDERED: HYDROmorphone 1 MG/1 ML SYRINGE IV SLOW PU PRN ×2 (15:27→15:37)
[2020-08-12] MEDS ORDERED: HYDROmorphone 1 MG/1 ML SYRINGE IV SLOW PU ONE (15:29)
[2020-08-12] MEDS: Lidocaine PATCH 5% PATCH TRANSDERM SCH (16:14)
[2020-08-12] MEDS: Lidocaine Patch REMOVE PATCH PATCH OFF SCH (21:37)
[2020-08-12] MEDS: Senna TAB 8.6 mg TAB PO PRN (21:38)
[2020-08-13] MEDS: NS 0.9% 1000 ml BAG 1,000 ML IV SCH ×2 (04:18→17:46)
[2020-08-13 06:20] LABS: ABS Lymphocytes 0.5 10^3/ul (1.0-4.8); ABS Monocytes 0.6 10^3/ul (0-0.8); ABS Neutrophils 4.9 10^3/ul (1.5-7.7); Eosinophil % 0.1 %; Hematocrit 28 % (42-52); Hemoglobin 9.6 g/dL (14.0-18.0); Lymphocyte % 8.2 %; Mean Corpuscular HGB Conc 34 g/dL (31-36); Mean Corpuscular Hemoglobin 28 pg (27-31); Mean Corpuscular Volume 83 fL (80-94); Mean Platelet Volume 8.5 fL (7.4-10.4); Nucleated Red Blood Cells % 0.1; Platelet Count 106 10^3/uL (150-450); Red Blood Count 3.43 10^6 /uL (4.18-5.48); Red Cell Distribution Width 17 % (10-15)
[2020-08-13 06:33] LABS: Albumin 3.1 g/dL (3.2-5.2); Albumin/Globulin Ratio 1.1 (1-3); BUN/Creatinine Ratio 25.3 (8-20); Calcium 9.4 mg/dL (8.6-10.3); EGFR Non-African American 76.9 (>60); Globulin 2.7 g/dL (2-4); Potassium 3.8 mmol/L (3.5-5.0); Total Bilirubin 0.8 mg/dL (0.2-1.0); Total Protein 5.8 g/dL (6.4-8.9)
[2020-08-13] MEDS: fentaNYL Patch Check Q Shift NOTE FOLLOW UP SCH ×2 (06:58→18:50)
[2020-08-13] MEDS: Dexamethasone IV 4 MG/ML VIAL 1 ml VIAL IV SLOW PU SCH ×2 (08:19→20:47)
[2020-08-13] MEDS: Enoxaparin 40 MG/0.4 ML SYR SUBCUT SCH (08:19)
[2020-08-13] MEDS: Lidocaine PATCH 5% PATCH TRANSDERM SCH (08:22)
[2020-08-13] MEDS: Potassium Chlor 20 meq TAB.ER PO SCH (08:32)
[2020-08-13] MEDS: PTO: OSIMERTINIB MESYLATE 80 MG TABLET (NF) PO SCH (08:32)
[2020-08-13] MEDS: Senna TAB 8.6 mg TAB PO SCH (20:46)
[2020-08-13] MEDS: Lidocaine Patch REMOVE PATCH PATCH OFF SCH (20:47)
[2020-08-14] MEDS: NS 0.9% 1000 ml BAG 1,000 ML IV SCH ×2 (06:45→20:30)
[2020-08-14] MEDS: fentaNYL Patch Check Q Shift NOTE FOLLOW UP SCH ×2 (06:46→18:33)
[2020-08-14] MEDS ORDERED: Lorazepam PYXIS KEY PRN (09:15)
[2020-08-14] MEDS: Senna TAB 8.6 mg TAB PO SCH ×2 (09:24→20:31)
[2020-08-14] MEDS: Potassium Chlor 20 meq TAB.ER PO SCH (09:25)
[2020-08-14] MEDS: Enoxaparin 40 MG/0.4 ML SYR SUBCUT SCH (09:25)
[2020-08-14] MEDS: LORazepam 2 mg VIAL 1 ml IV PUSH PRN (09:35)
[2020-08-14] MEDS: PTO: OSIMERTINIB MESYLATE 80 MG TABLET (NF) PO SCH (09:40)
[2020-08-14] MEDS: Lidocaine PATCH 5% PATCH TRANSDERM SCH (09:40)
[2020-08-14] MEDS: Lidocaine Patch REMOVE PATCH PATCH OFF SCH (20:31)
[2020-08-15] MEDS: LORazepam 2 mg VIAL 1 ml IV PUSH PRN ×2 (00:01→13:49)
[2020-08-15 05:55] LABS: ABS Lymphocytes 0.7 10^3/ul (1.0-4.8); ABS Monocytes 0.6 10^3/ul (0-0.8); ABS Neutrophils 5.8 10^3/ul (1.5-7.7); Eosinophil % 0.1 %; Hematocrit 30 % (42-52); Hemoglobin 10.2 g/dL (14.0-18.0); Lymphocyte % 9.6 %; Mean Corpuscular HGB Conc 34 g/dL (31-36); Mean Corpuscular Hemoglobin 28 pg (27-31); Mean Corpuscular Volume 83 fL (80-94); Mean Platelet Volume 8.7 fL (7.4-10.4); Platelet Count 106 10^3/uL (150-450); Red Blood Count 3.61 10^6 /uL (4.18-5.48); Red Cell Distribution Width 17 % (10-15); White Blood Count 7.1 10^3/uL (3.5-10.8)
[2020-08-15 06:17] LABS: Albumin 3.2 g/dL (3.2-5.2); Albumin/Globulin Ratio 1.1 (1-3); BUN/Creatinine Ratio 25.3 (8-20); Calcium 8.9 mg/dL (8.6-10.3); EGFR African American 108.7 (>60); EGFR Non-African American 89.8 (>60); Globulin 2.8 g/dL (2-4)
[2020-08-15] MEDS: fentaNYL Patch Check Q Shift NOTE FOLLOW UP SCH ×2 (06:40→19:27)
[2020-08-15 06:43] LABS: Potassium 2.7 mmol/L (3.5-5.0)
[2020-08-15] MEDS: PTO: OSIMERTINIB MESYLATE 80 MG TABLET (NF) PO SCH (09:22)
[2020-08-15] MEDS: Enoxaparin 40 MG/0.4 ML SYR SUBCUT SCH (09:25)
[2020-08-15] MEDS: Lidocaine PATCH 5% PATCH TRANSDERM SCH (09:26)
[2020-08-15] MEDS: Senna TAB 8.6 mg TAB PO SCH ×2 (09:27→21:24)
[2020-08-15] MEDS: Potassium Chlor 20 meq TAB.ER PO SCH (09:28)
[2020-08-15] MEDS: NS 0.9% 1000 ml BAG 1,000 ML IV SCH ×2 (10:25→21:31)
[2020-08-15] MEDS ORDERED: Magnesium Hydroxide LIQ 30 ML UDC PO ONE (10:37)
[2020-08-15] MEDS ORDERED: Magnesium Hydroxide LIQ 30 ML UDC PO PRN (10:38)
[2020-08-15] MEDS ORDERED: fentaNYL PATCH 25 MCG/HR 1 PATCH TRANSDERM SCH (11:00)
[2020-08-15] MEDS: KCL 20 MEQ/100 ML IVPREMIX 20 MEQ/100 ML BAG IV SCH ×2 (11:28→14:28)
[2020-08-15] MEDS: fentaNYL PATCH 25 MCG/HR 1 PATCH TRANSDERM SCH (19:19)
[2020-08-15] MEDS: Lidocaine Patch REMOVE PATCH PATCH OFF SCH (21:24)
[2020-08-16 05:12] LABS: BUN/Creatinine Ratio 25.6 (8-20); Calcium 8.9 mg/dL (8.6-10.3); EGFR African American 116.8 (>60); EGFR Non-African American 96.5 (>60); Potassium 2.9 mmol/L (3.5-5.0)
[2020-08-16] MEDS: fentaNYL Patch Check Q Shift NOTE FOLLOW UP SCH ×2 (07:22→19:30)
[2020-08-16] MEDS: NS 0.9% 1000 ml BAG 1,000 ML IV SCH ×2 (08:46→21:18)
[2020-08-16] MEDS: Enoxaparin 40 MG/0.4 ML SYR SUBCUT SCH (09:57)
[2020-08-16] MEDS: Lidocaine PATCH 5% PATCH TRANSDERM SCH (09:57)
[2020-08-16] MEDS: Senna TAB 8.6 mg TAB PO SCH ×2 (10:01→20:58)
[2020-08-16] MEDS: Potassium Chlor 20 meq TAB.ER PO SCH (10:03)
[2020-08-16] MEDS: PTO: OSIMERTINIB MESYLATE 80 MG TABLET (NF) PO SCH (10:11)
[2020-08-16] MEDS: KCL 20 MEQ/100 ML IVPREMIX 20 MEQ/100 ML BAG IV SCH ×2 (11:24→14:27)
[2020-08-16] MEDS: fentaNYL PATCH 25 MCG/HR 1 PATCH TRANSDERM SCH (12:54)
[2020-08-16] MEDS: Lidocaine Patch REMOVE PATCH PATCH OFF SCH (21:00)
[2020-08-17 07:08] LABS: BUN/Creatinine Ratio 22.7 (8-20); EGFR African American 101.6 (>60); Potassium 3.3 mmol/L (3.5-5.0)
[2020-08-17] MEDS: fentaNYL Patch Check Q Shift NOTE FOLLOW UP SCH ×2 (07:31→18:57)
[2020-08-17] MEDS: Potassium Chlor 20 meq TAB.ER PO SCH (09:09)
[2020-08-17] MEDS: Senna TAB 8.6 mg TAB PO SCH ×2 (09:10→19:46)
[2020-08-17] MEDS: PTO: OSIMERTINIB MESYLATE 80 MG TABLET (NF) PO SCH (09:12)
[2020-08-17] MEDS: Lidocaine PATCH 5% PATCH TRANSDERM SCH (09:12)
[2020-08-17] MEDS: Enoxaparin 40 MG/0.4 ML SYR SUBCUT SCH (09:13)
[2020-08-17] MEDS: NS 0.9% 1000 ml BAG 1,000 ML IV SCH ×2 (09:16→23:21)
[2020-08-17] MEDS ORDERED: Magic MouthWash2-BEN/MAAL/LIDO/NYST 240 ML BTL (alt formulation) SWISH SPIT PRN (10:00)
[2020-08-17] MEDS: Lidocaine Patch REMOVE PATCH PATCH OFF SCH (19:00)
[2020-08-18] MEDS: fentaNYL Patch Check Q Shift NOTE FOLLOW UP SCH ×2 (07:04→20:04)
[2020-08-18] MEDS: Senna TAB 8.6 mg TAB PO SCH ×2 (07:34→20:49)
[2020-08-18] MEDS: Potassium Chlor 20 meq TAB.ER PO SCH (07:35)
[2020-08-18] MEDS: Lidocaine PATCH 5% PATCH TRANSDERM SCH (07:36)
[2020-08-18] MEDS: Enoxaparin 40 MG/0.4 ML SYR SUBCUT SCH (07:36)
[2020-08-18] MEDS: PTO: OSIMERTINIB MESYLATE 80 MG TABLET (NF) PO SCH (07:37)
[2020-08-18 09:18] LABS: Albumin 3.4 g/dL (3.2-5.2); Albumin/Globulin Ratio 1.3 (1-3); BUN/Creatinine Ratio 22.1 (8-20); Calcium 9.2 mg/dL (8.6-10.3); EGFR African American 104.3 (>60); EGFR Non-African American 86.2 (>60); Globulin 2.7 g/dL (2-4); Potassium 2.9 mmol/L (3.5-5.0); Total Bilirubin 1.2 mg/dL (0.2-1.0); Total Protein 6.1 g/dL (6.4-8.9)
[2020-08-18 11:50] LABS: Magnesium 1.3 mg/dL (1.9-2.7)
[2020-08-18] MEDS: fentaNYL PATCH 50 MCG/HR 1 PATCH TRANSDERM SCH ×2 (12:06→12:12)
[2020-08-18] MEDS: fentaNYL PATCH 25 MCG/HR 1 PATCH TRANSDERM SCH (12:10)
[2020-08-18] MEDS: Lidocaine Patch REMOVE PATCH PATCH OFF SCH (21:10)
[2020-08-19 00:20] VITALS: BP 110/71
== END 2020-08-19 04:02 | disposition expired | DRG 543 ==
LOC: CHOA 12:36 → MEDTELE 14:06 → MED 08-18 22:33
PROVIDERS: ADMIT Internal Medicine Hematology & Oncology; ATTEND Internal Medicine Hematology & Oncology